=== PATIENT | female | born 1945 | race African-American/Black ===

== ENCOUNTER 2021-08-18 16:46 | Inpatient (IN) | payer MEDICARE, BC ==
[~2021-08-18] VITALS: Ht 152.4 cm; Wt 93.4 kg
[~2021-08-18 16:46] MED LIST: ASCO250T11 PO; ATOR20TA58 PO; Amlodipine PO; CALC0.25 PO; CALC0.5C8 PO; CALC667T4 PO; CARV12.511 PO; CARV25TA PO; CHOL10003 PO; CHOL200044 PO; Carvedilol PO; Cetirizine PO; FERR325T14 PO; FEXO-213 PO; FLUT1DIS IH; FURO-68 PO; GLUC1CAP18 PO; GLUCOSAMINE HCL PO; ISOS1TAB2 PO; LACT1CAP2 PO; LOSA100T14 PO; MAGN400T22 PO; MIDO5TAB4 PO; MINE120C TP; TRAM50TA PO; VIT1TABL32 PO; WARF5TAB2 PO; Warfarin Per Pharmacy MC
[2021-08-18] MEDS ORDERED: MIDO10TA PO (17:58)
[2021-08-18 18:28] VITALS: BP 122/47
--- NOTE | 2021-08-18 19:30 | PDOC1 ---
History and Physical Date of Admission Date of Admission DATE: 08/18/21 TIME: 19:26 Source Source: Caregiver, Chart review History of Present Illness History of Present Illness I was called to accept transfer from [facility]. She was brought by EMS for weakness, she missed HD because she could nto get out of her chair. Prior admit here for similar a year ago, but thinks she didnt get enough therapy then, just sitting on the side of thebed, EMS tried to get her up today and she fell, no injury. She reportedly sleeps in her recliner due to CHF symptoms, has gotten weaker over time, has PVD, prior leg weakness, is very pleasant and is motivated to try to get stronger with PT and OT in the AM SHe lives with her son, is retired after 34 years working at the [employer]. Past Medical History Cardiovascular: AFIB, CHF, HTN Pulmonary: Other CENTRAL NERVOUS SYSTEM: CVA GI: No pertinent hx, GERD Heme/Onc: Anemia NOS Hepatobiliary: No pertinent hx Psych: No pertinent hx Rheumatologic: No pertinent hx Infectious disease: No pertinent hx Renal/: Chronic renal insuff Endocrine: No pertinent hx Past Surgical History Past Surgical History: Pacemaker, Appendectomy, Hysterectomy, Other Family History Family History: Coronary Artery Disease Social History Smoke: No ALCOHOL: none Drugs: None Current Medications Current Medications Active Scripts Active Atorvastatin Calcium 20 Mg Tablet 20 Mg PO QHS 30 Days [Warfarin Per Pharmacy] 1 EACH Each 1 Each MC PRN DAILY PRN 30 Days Reported Midodrine Hcl 10 Mg Tablet 10 Mg PO DAILY Calcium Acetate 667 Mg Tablet 667 Mg PO TIDWMEALS [Glucosamine HCL] 1 Tab PO BID Mag-Oxide (Magnesium Oxide) 400 Mg Tablet 1 Tab PO DAILY Lasix (Furosemide) 40 Mg Tablet 1 Tab PO DAILY Allergies Allergies: Coded Allergies: No Known Medication Allergies (Verified Allergy, Unknown, 04/21/16) ROS General: No: Chills, Night Sweats, Fatigue, Malaise, Appetite, Other PSYCHOLOGICAL ROS: No: Anxiety, Behavioral Disorder, Concentration difficultie, Decreased libido, Depression, Disorientation, Hallucinations, Hostility, Irritablity, Memory difficulties, Mood Swings, Obsessive thoughts, Physical abuse, Sexual abuse, Sleep disturbances, Suicidal ideation, Other Eyes: No Blurry vision, No Decreased vision, No Double vision, No Dry eyes, No Excessive tearing, No Eye Pain, No Itchy Eyes, No Loss of vision, No Photophobia, No Scotomata, No Uses contacts, No Uses glasses, No Other Hematological and Lymphatic: No: Bleeding Problems, Blood Clots, Blood Transfusions, Brusing, Night Sweats, Pallor, Swollen Lymph Nodes, Other Respiratory: No: Cough, Hemoptysis, Orthopnea, Pleuritic Pain, Shortness of breath, SOB with excertion, Sputum Changes, Stridor, Tachypnea, Wheezing, Other Cardiovascular: yes Orthopnea, yes Edema; No Chest Pain, No Palpitations, No Paroxysmal Noc. Dyspnea, No Lt Headedness, No Other Gastrointestinal: No Nausea, No Vomiting, No Abdominal Pain, No Diarrhea, No Constipation, No Melena, No Hematochezia, No Other Genitourinary: No Dysuria, No Frequency, No Incontinence, No Hematuria, No Retention, No Discharge, No Urgency, No Pain, No Flank Pain, No Other, No , No , No , No , No , No , No Musculoskeletal: Yes Gait Disturbance, Yes Joint Pain, Yes Joint Stiffness, Yes Muscular Weakness Neurological: No Behavorial Changes, No Bowel/Bladder ControlChng, No Confusion, No Headaches, No Impaired Coord/balance, No Memory Loss, No Numbness/Tingling, No Seizures, No Speech Problems, No Tremors, No Visual Changes, No Weakness, No Other Skin: Yes Dry Skin; No Eczema, No Hair Changes, No Lumps, No Mole Changes, No Mottling, No Nail Changes, No Pruritus, No Rash, No Skin Lesion Changes, No Other, No Acne Physical Exam General: Alert, Oriented X3, Cooperative, No acute distress HEENT: Atraumatic, PERRLA, EOMI, Mucous membr. moist/pink Lungs: Normal air movement Heart: no murmurs, irregularly irregular Extremities: No clubbing, No cyanosis, Normal pulses, Other (1+ Le edema, ) Skin: No rashes Neuro: Normal gait, Normal tone, Cranial nerves 3-12 NL Psych/Mental Status: Mood NL Vitals Vitals Vital Signs Date Time Temp Pulse Resp B/P (MAP) Pulse Ox O2 Delivery O2 Flow Rate FiO2 08/18/21 18:28 Room Air 08/18/21 18:28 98.5 61 18 122/47 (72) 96 98.5 Labs Labs INR 3.8 Cr 7.9, BUN 66, Hgb 10.5 VTE Prophylaxis Ordered VTE Prophylaxis Devices: Yes VTE Pharmacological Prophylaxi: Yes Assessment/Plan Assessment/Plan Weakness - acute on chronic, priro admit about a year ago for similar - will try PT and OT, check labs ESRD on HD consult renal anemia, of CKD chronic combined CHF The Ejection Fraction is 40-45%. Global hypokinesis. mild tricuspid regurgitation. PA pressure approximately 58 mm PVD - Atrial fibrillation Macrocytic anemia HTN History CVA History of hypotension obesity BMI 39 Lower extremity weakness, Justifications for Admission Other Justification JUANA REA MD Aug 18, 2021 19:30
[2021-08-18 19:54] VITALS: BP 125/86
[2021-08-18] MEDS: ATORVASTATIN CALCIUM 20 MG TABLET PO SCH (21:15)
[2021-08-18 23:16] VITALS: BP 110/48
[2021-08-18 23:31] VITALS: BP 116/56
[2021-08-18 23:32] VITALS: BP 104/57
[2021-08-19 03:32] VITALS: BP 129/53
[2021-08-19 07:00] VITALS: BP 121/57
[2021-08-19] MEDS: MIDODRINE 5 MG TABLET PO SCH (07:00)
[2021-08-19] MEDS: CALCIUM ACETATE 667 MG CAPSULE PO SCH ×3 (08:06→16:56)
[2021-08-19] MEDS: FUROSEMIDE 40 MG TABLET. PO SCH (08:06)
[2021-08-19] MEDS: MAGNESIUM OXIDE 400 MG TABLET PO SCH (08:06)
[2021-08-19 08:20] LABS: BASO % 0 % (0-3); EOS # 0.2 x10^3/uL (0.0-0.7); EOS % 4 % (0-3); HEMATOCRIT 29.1 % (36.0-47.0); HEMOGLOBIN 9.2 g/dL (12.0-15.5); LYMPH # 0.6 x10^3/uL (1.0-4.8); LYMPH % 10 % (24-48); MEAN CORPUSCULAR HEMOGLOBIN 31 pg (25-35); MEAN CORPUSCULAR HGB CONC 32 g/dL (31-37); MEAN CORPUSCULAR VOLUME 98 fL (79-100); MONO # 0.7 x10^3/uL (0.0-1.1); MONO % 11 % (0-9); NEUT # 4.8 x10^3/uL (1.8-7.7); NEUT % 75 % (31-73); PLATELET COUNT 163 x10^3/uL (140-400); RED BLOOD COUNT 2.98 x10^6/uL (3.50-5.40); RED CELL DISTRIBUTION WIDTH 16.7 % (11.5-14.5); WHITE BLOOD COUNT 6.4 x10^3/uL (4.0-11.0)
[2021-08-19 08:30] LABS: PROTHROMBIN TIME PATIENT 40.6 SEC (11.7-14.0)
[2021-08-19 08:38] LABS: ALBUMIN 2.8 g/dL (3.4-5.0); ALBUMIN/GLOBULIN RATIO 0.6 (1.0-1.7); CALCIUM 8.6 mg/dL (8.5-10.1); CREATININE 9.3 mg/dL (0.6-1.0); POTASSIUM 4.1 mmol/L (3.5-5.1); TOTAL BILIRUBIN 0.5 mg/dL (0.2-1.0); TOTAL PROTEIN 7.2 g/dL (6.4-8.2)
[2021-08-19 11:00] VITALS: BP 121/52
--- NOTE | 2021-08-19 11:50 | NUR ---
Pharmacy Warfarin Dosing Note S:Pharmacy consulted to assist with anticoagulation therapy started with target INR: 2 -3 O:OSORIO PATEL is a 75 year old F with Atrial Fibrillation LABS: Last INR: 4.3 Last HGB: 9.2 Last HCT: 29.1 Last PLT: 163 Last dose of Hold given on at Previous Regimen: 5mg po daily Vitamin K given: N Drug Interaction Changes: Ongoing Drug Interactions: A:INR of 4.3 is above desired range. Target range for this patient is: 2 -3 P: Warfarin dose: Hold Today at 1600 Bridge Therapy: None Next INR due tomorrow. Pharmacy anticoagulation service will continue to follow. Robert Goddard [facility], 08/19/21 [id number]
--- NOTE | 2021-08-19 11:55 | PDOC ---
[employer] PROGRESS NOTE Date of Service DOS: DATE: 08/19/21 TIME: 11:48 Chief Complaint Chief Complaint Weakness - acute on chronic, priro admit about a year ago for similar - will try PT and OT, check labs ESRD on HD consult renal anemia, of CKD chronic combined CHF The Ejection Fraction is 40-45%. Global hypokinesis. mild tricuspid regurgitation. PA pressure approximately 58 mm PVD - Atrial fibrillation Macrocytic anemia HTN History CVA History of hypotension obesity BMI 39 Lower extremity weakness, History of Present Illness History of Present Illness 08/19 Patient evaluated examined at bedside. In chair. Had just gotten done working with therapy. Says she was able to get up out of bed and into the chair. Described to me she was at [facility] from last December to this July. And eventually discharged from there on July 25. Since returning home she initially was doing well however she got more sporadic on doing her therapies at home since she was feeling better. Over the few days developed worsening weakness and decreased p.o. intake. Eventually requiring her to come back to the hospital. When I evaluated her this morning she was resting in bed saying still feeling fatigued. Otherwise we will continue current plan. She is adamant about not returning to [facility] discussed with bedside RN. Social work consult Vitals/I&O Vitals/I&O: Vital Signs Date Time Temp Pulse Resp B/P (MAP) Pulse Ox O2 Delivery O2 Flow Rate FiO2 08/19/21 11:00 97.4 65 19 121/52 (75) 99 Room Air 97.4 I & O 08/18/21 08/18/21 08/19/21 15:00 23:00 07:00 Intake Total 330 ml Balance 330 ml Physical Exam General: Alert, Oriented X3, Cooperative, No acute distress Heart: Regular rate Lungs: Clear Abdomen: Normal bowel sounds, Soft Extremities: No clubbing, No cyanosis, Normal pulses, Other (1+ Le edema, ) Skin: No rashes Labs Labs: Laboratory Tests Test 08/19/21 05:00 08/19/21 06:45 08/19/21 06:50 Hepatitis B Surface Antigen Nonreactive (Nonreactive) White Blood Count 6.4 x10^3/uL (4.0-11.0) Red Blood Count 2.98 x10^6/uL (3.50-5.40) Hemoglobin 9.2 g/dL (12.0-15.5) Hematocrit 29.1 % (36.0-47.0) Mean Corpuscular Volume 98 fL (79-100) Mean Corpuscular Hemoglobin 31 pg (25-35) Mean Corpuscular Hemoglobin Concent 32 g/dL (31-37) Red Cell Distribution Width 16.7 % (11.5-14.5) Platelet Count 163 x10^3/uL (140-400) Neutrophils (%) (Auto) 75 % (31-73) Lymphocytes (%) (Auto) 10 % (24-48) Monocytes (%) (Auto) 11 % (0-9) Eosinophils (%) (Auto) 4 % (0-3) Basophils (%) (Auto) 0 % (0-3) Neutrophils # (Auto) 4.8 x10^3/uL (1.8-7.7) Lymphocytes # (Auto) 0.6 x10^3/uL (1.0-4.8) Monocytes # (Auto) 0.7 x10^3/uL (0.0-1.1) Eosinophils # (Auto) 0.2 x10^3/uL (0.0-0.7) Basophils # (Auto) 0.0 x10^3/uL (0.0-0.2) Sodium Level 143 mmol/L (136-145) Potassium Level 4.1 mmol/L (3.5-5.1) Chloride Level 105 mmol/L (98-107) Carbon Dioxide Level 27 mmol/L (21-32) Anion Gap 11 (6-14) Blood Urea Nitrogen 80 mg/dL (7-20) Creatinine 9.3 mg/dL (0.6-1.0) Estimated GFR (Cockcroft-Gault) 5.0 BUN/Creatinine Ratio 9 (6-20) Glucose Level 80 mg/dL (70-99) Calcium Level 8.6 mg/dL (8.5-10.1) Total Bilirubin 0.5 mg/dL (0.2-1.0) Aspartate Amino Transf (AST/SGOT) 15 U/L (15-37) Alanine Aminotransferase (ALT/SGPT) 7 U/L (14-59) Alkaline Phosphatase 121 U/L (46-116) Total Protein 7.2 g/dL (6.4-8.2) Albumin 2.8 g/dL (3.4-5.0) Albumin/Globulin Ratio 0.6 (1.0-1.7) Prothrombin Time 40.6 SEC (11.7-14.0) Prothromb Time International Ratio 4.3 (0.8-1.1) Comment Review of Relevant I have reviewed the following items maya (where applicable) has been applied. Medications: Current Medications Medications (Trade) Dose Ordered Sig/Radha Route PRN Reason Start Time Stop Time Status Last Admin Dose Admin Atorvastatin Calcium (Lipitor) 20 mg QHS PO 08/18/21 21:00 08/18/21 21:15 Furosemide (Lasix) 40 mg DAILY PO 08/19/21 09:00 08/19/21 08:06 Magnesium Oxide (Magnesium Oxide) 400 mg DAILY PO 08/19/21 09:00 08/19/21 08:06 Calcium Acetate (Phoslo) 667 mg TIDWMEALS PO 08/19/21 08:00 08/19/21 08:06 Justifications for Admission Other Justification CASI CHOI MD Aug 19, 2021 11:55
--- NOTE | 2021-08-19 13:28 | PDOC2 ---
CONSULT Date of Consult Date of Consult DATE: 08/19/21 TIME: 13:28 Reason for Consult Reason for Consult: ESRD Identification/Chief Complaint Chief Complaint No complaints currently Source Source: Chart review, Patient History of Present Illness Reason for Visit: Patient is a 75 yo AAF transferred from [facility] ER by EMS for c/o weakness, she missed HD yesterday as she could not get out of her chair. She was admitted here for similar complaints a year ago .EMS tried to get her up but she fell, no injury. She sleeps in her recliner due to CHF symptoms, has gotten weaker over time, has PVD . denies any N/.V.D. No CP or SOB. No abdominal pain . Denies F/C , No LE edema Has been on dialysis for 7-8 years , reports cause of Kidney failure was UTI. She is compliant with Dialysis and Diet/Fluid restrictions SHe lives with her son, is retired after 34 years working at the [employer]. Past Medical History Cardiovascular: AFIB, CHF, HTN Pulmonary: Other CENTRAL NERVOUS SYSTEM: CVA GI: No pertinent hx, GERD Heme/Onc: Anemia NOS Hepatobiliary: No pertinent hx Psych: No pertinent hx Rheumatologic: No pertinent hx Infectious disease: No pertinent hx Renal/: Chronic renal insuff Endocrine: No pertinent hx Past Surgical History Past Surgical History: Pacemaker, Appendectomy, Hysterectomy, Other Family History Family History: Coronary Artery Disease Social History No ALCOHOL: none Drugs: None Lives: with Family Current Medications Current Medications Current Medications Atorvastatin Calcium (Lipitor) 20 mg QHS PO Last administered on 08/18/21at 21:15; Start 08/18/21 at 21:00 Furosemide (Lasix) 40 mg DAILY PO Last administered on 08/19/21at 08:06; Start 08/19/21 at 09:00 Magnesium Oxide (Magnesium Oxide) 400 mg DAILY PO Last administered on 08/19/21at 08:06; Start 08/19/21 at 09:00 Calcium Acetate (Phoslo) 667 mg TIDWMEALS PO Last administered on 08/19/21at 11:55; Start 08/19/21 at 08:00 Midodrine (Proamatine) 10 mg DAILY07 PO ; Start 08/19/21 at 07:00 Warfarin Sodium (Coumadin Per Pharmacy) 1 each PRN DAILY PRN MC SEE COMMENTS Last administered on 08/19/21at 11:49; Start 08/18/21 at 20:00 Warfarin Sodium (Coumadin - No Dose Today) 1 each 1X WARF ONCE MC ; Start 08/18/21 at 16:00; Stop 08/19/21 at 11:43; Status DC Warfarin Sodium (Coumadin - No Dose Today) 1 each 1X WARF ONCE MC Last administered on 08/19/21at 11:55; Start 08/19/21 at 16:00; Stop 08/19/21 at 16:01 Active Scripts Active Atorvastatin Calcium 20 Mg Tablet 20 Mg PO QHS 30 Days [Warfarin Per Pharmacy] 1 EACH Each 1 Each MC PRN DAILY PRN 30 Days Reported Midodrine Hcl 10 Mg Tablet 10 Mg PO DAILY Calcium Acetate 667 Mg Tablet 667 Mg PO TIDWMEALS [Glucosamine HCL] 1 Tab PO BID Mag-Oxide (Magnesium Oxide) 400 Mg Tablet 1 Tab PO DAILY Lasix (Furosemide) 40 Mg Tablet 1 Tab PO DAILY Allergies Allergies: Coded Allergies: No Known Medication Allergies (Verified Allergy, Unknown, 04/21/16) ROS Review of System As per HPI, rest of the ROS is negative Physical Exam Physical Exam General: Alert, Oriented X3, Cooperative, No acute distress, sitting up in chair HEENT: Atraumatic, PERRLA, EOMI, Mucous membr. moist/pink Neck Supple Lungs: CTA , Non labored Heart: no murmurs, irregularly irregular Extremities: No clubbing, No cyanosis, trace edema Skin: No rashes Neuro: Cranial nerves 3-12 NL, moving all extremities Psych/Mental Status: Mood NL, cooperative No Hayes, No CVA or SP tenderness Vital Signs Vital Signs Date Time Temp Pulse Resp B/P (MAP) Pulse Ox O2 Delivery O2 Flow Rate FiO2 08/19/21 11:00 97.4 65 19 121/52 (75) 99 Room Air 97.4 Assessment & Plan ESRD- On HD MWF, missed yesterday .E-Lytes stable. Clinically Resp status stable. No emergent indication for dialysis today. Schedule for tomorrow Weakness - Lower extremity acute on chronic, priror admit about a year ago for similar Anemia- Monitor, Start TRACEY Chronic combined CHF - EF 40-45%. Global hypokinesis. mild tricuspid regurgitation. PA pressure approximately 58 mm HTN- BP stable PVD Atrial fibrillation History CVA History of hypotension Labs Labs Laboratory Tests Test 08/19/21 05:00 08/19/21 06:45 08/19/21 06:50 Hepatitis B Surface Antigen Nonreactive (Nonreactive) White Blood Count 6.4 x10^3/uL (4.0-11.0) Red Blood Count 2.98 x10^6/uL (3.50-5.40) Hemoglobin 9.2 g/dL (12.0-15.5) Hematocrit 29.1 % (36.0-47.0) Mean Corpuscular Volume 98 fL (79-100) Mean Corpuscular Hemoglobin 31 pg (25-35) Mean Corpuscular Hemoglobin Concent 32 g/dL (31-37) Red Cell Distribution Width 16.7 % (11.5-14.5) Platelet Count 163 x10^3/uL (140-400) Neutrophils (%) (Auto) 75 % (31-73) Lymphocytes (%) (Auto) 10 % (24-48) Monocytes (%) (Auto) 11 % (0-9) Eosinophils (%) (Auto) 4 % (0-3) Basophils (%) (Auto) 0 % (0-3) Neutrophils # (Auto) 4.8 x10^3/uL (1.8-7.7) Lymphocytes # (Auto) 0.6 x10^3/uL (1.0-4.8) Monocytes # (Auto) 0.7 x10^3/uL (0.0-1.1) Eosinophils # (Auto) 0.2 x10^3/uL (0.0-0.7) Basophils # (Auto) 0.0 x10^3/uL (0.0-0.2) Sodium Level 143 mmol/L (136-145) Potassium Level 4.1 mmol/L (3.5-5.1) Chloride Level 105 mmol/L (98-107) Carbon Dioxide Level 27 mmol/L (21-32) Anion Gap 11 (6-14) Blood Urea Nitrogen 80 mg/dL (7-20) Creatinine 9.3 mg/dL (0.6-1.0) Estimated GFR (Cockcroft-Gault) 5.0 BUN/Creatinine Ratio 9 (6-20) Glucose Level 80 mg/dL (70-99) Calcium Level 8.6 mg/dL (8.5-10.1) Total Bilirubin 0.5 mg/dL (0.2-1.0) Aspartate Amino Transf (AST/SGOT) 15 U/L (15-37) Alanine Aminotransferase (ALT/SGPT) 7 U/L (14-59) Alkaline Phosphatase 121 U/L (46-116) Total Protein 7.2 g/dL (6.4-8.2) Albumin 2.8 g/dL (3.4-5.0) Albumin/Globulin Ratio 0.6 (1.0-1.7) Prothrombin Time 40.6 SEC (11.7-14.0) Prothromb Time International Ratio 4.3 (0.8-1.1) Laboratory Tests Test 08/19/21 05:00 08/19/21 06:45 08/19/21 06:50 Hepatitis B Surface Antigen Nonreactive (Nonreactive) White Blood Count 6.4 x10^3/uL (4.0-11.0) Red Blood Count 2.98 x10^6/uL (3.50-5.40) Hemoglobin 9.2 g/dL (12.0-15.5) Hematocrit 29.1 % (36.0-47.0) Mean Corpuscular Volume 98 fL (79-100) Mean Corpuscular Hemoglobin 31 pg (25-35) Mean Corpuscular Hemoglobin Concent 32 g/dL (31-37) Red Cell Distribution Width 16.7 % (11.5-14.5) Platelet Count 163 x10^3/uL (140-400) Neutrophils (%) (Auto) 75 % (31-73) Lymphocytes (%) (Auto) 10 % (24-48) Monocytes (%) (Auto) 11 % (0-9) Eosinophils (%) (Auto) 4 % (0-3) Basophils (%) (Auto) 0 % (0-3) Neutrophils # (Auto) 4.8 x10^3/uL (1.8-7.7) Lymphocytes # (Auto) 0.6 x10^3/uL (1.0-4.8) Monocytes # (Auto) 0.7 x10^3/uL (0.0-1.1) Eosinophils # (Auto) 0.2 x10^3/uL (0.0-0.7) Basophils # (Auto) 0.0 x10^3/uL (0.0-0.2) Sodium Level 143 mmol/L (136-145) Potassium Level 4.1 mmol/L (3.5-5.1) Chloride Level 105 mmol/L (98-107) Carbon Dioxide Level 27 mmol/L (21-32) Anion Gap 11 (6-14) Blood Urea Nitrogen 80 mg/dL (7-20) Creatinine 9.3 mg/dL (0.6-1.0) Estimated GFR (Cockcroft-Gault) 5.0 BUN/Creatinine Ratio 9 (6-20) Glucose Level 80 mg/dL (70-99) Calcium Level 8.6 mg/dL (8.5-10.1) Total Bilirubin 0.5 mg/dL (0.2-1.0) Aspartate Amino Transf (AST/SGOT) 15 U/L (15-37) Alanine Aminotransferase (ALT/SGPT) 7 U/L (14-59) Alkaline Phosphatase 121 U/L (46-116) Total Protein 7.2 g/dL (6.4-8.2) Albumin 2.8 g/dL (3.4-5.0) Albumin/Globulin Ratio 0.6 (1.0-1.7) Prothrombin Time 40.6 SEC (11.7-14.0) Prothromb Time International Ratio 4.3 (0.8-1.1) Review All relevant outside records, renal labs, imaging studies, telemetry/EKG's were reviewed. JARAD SHAH MD Aug 19, 2021 13:28
[2021-08-19 15:00] VITALS: BP 127/52
[2021-08-19 19:00] VITALS: BP 117/44
[2021-08-19] MEDS: ATORVASTATIN CALCIUM 20 MG TABLET PO SCH (21:34)
[2021-08-19 23:10] VITALS: BP 119/42
[2021-08-20 03:30] VITALS: BP 118/47
[2021-08-20] MEDS: MIDODRINE 5 MG TABLET PO SCH (06:06)
[2021-08-20 07:00] VITALS: BP 126/53
[2021-08-20] MEDS: CALCIUM ACETATE 667 MG CAPSULE PO SCH ×3 (08:00→16:28)
[2021-08-20 08:11] LABS: PROTHROMBIN TIME PATIENT 41.4 SEC (11.7-14.0)
[2021-08-20 08:27] LABS: CALCIUM 8.5 mg/dL (8.5-10.1); GFR 4.1
[2021-08-20] MEDS: GLUCOSAMINE PO SCH ×2 (08:56→21:00)
[2021-08-20] MEDS: [UNRECOGNIZED DRUG - OTHER] PO SCH ×2 (08:56→21:00)
[2021-08-20] MEDS: FUROSEMIDE 40 MG TABLET. PO SCH (09:00)
[2021-08-20] MEDS ORDERED: DIALYSIS PATIENT. MC PRN (09:00)
[2021-08-20] MEDS ORDERED: IV NORMAL SALINE 1000ML BAG 1,000 ML IV PRN ×2 (09:00)
[2021-08-20] MEDS: MAGNESIUM OXIDE 400 MG TABLET PO SCH (09:00)
--- NOTE | 2021-08-20 09:45 | PDOC ---
DATE OF SERVICE DATE: 08/20/21 TIME: 09:42 SUBJECTIVE ROS Seen on dialysis, No complaints OBJECTIVE Vital Signs Vital Signs Date Time Temp Pulse Resp B/P (MAP) Pulse Ox O2 Delivery O2 Flow Rate FiO2 08/20/21 08:30 Room Air 08/20/21 07:00 98.1 67 18 126/53 (77) 97 98.1 I & 0 Intake and Output 08/20/21 07:00 Intake Total 290 ml Balance 290 ml Intake Oral 290 ml # Bowel Movements 1 PHYSICAL EXAM Physical Exam General: Alert, Oriented X3, Cooperative, No acute distress, sitting up in chair HEENT: Atraumatic, PERRLA, EOMI, Mucous membr. moist/pink Neck Supple Lungs: CTA , Non labored Heart: no murmurs, irregularly irregular Extremities: No clubbing, No cyanosis, trace edema Skin: No rashes Neuro: Cranial nerves 3-12 NL, moving all extremities Psych/Mental Status: Mood NL, cooperative No Hayes, No CVA or SP tenderness Vital Signs Vital Signs Date Time Temp Pulse Resp B/P (MAP) Pulse Ox O2 Delivery O2 Flow Rate FiO2 08/19/21 11:00 97.4 65 19 121/52 (75) 99 Room Air 97.4 DIAGNOSIS/ASSESSMENT Assessment & Plan ESRD- On HD MWF, .E-Lytes stable. Seen during treatment, Tolerating well. Continue as ordered. Edd VILLARREAL Weakness - Lower extremity acute on chronic, priror admit about a year ago for similar Anemia- Monitor, Start TRACEY Chronic combined CHF - EF 40-45%. Global hypokinesis. mild tricuspid regurgitation. PA pressure approximately 58 mm HTN- BP stable PVD Atrial fibrillation History CVA History of hypotension COMMENT/RELEVANT DATA Meds Current Medications Medications (Trade) Dose Ordered Sig/Radha Start Time Stop Time Status Last Admin Dose Admin Atorvastatin Calcium (Lipitor) 20 mg QHS 08/18/21 21:00 08/19/21 21:34 20 MG Calcium Acetate (Phoslo) 667 mg TIDWMEALS 08/19/21 08:00 08/19/21 16:56 667 MG Furosemide (Lasix) 40 mg DAILY 08/19/21 09:00 08/20/21 09:00 40 MG Info (PHARMACY MONITORING -- do not chart) 1 each PRN DAILY PRN 08/20/21 09:00 Magnesium Oxide (Magnesium Oxide) 400 mg DAILY 08/19/21 09:00 08/20/21 09:00 400 MG Midodrine (Proamatine) 10 mg DAILY07 08/19/21 07:00 Non-Formulary Medication ([Glucosamine HCL] ) 1 tab BID 08/20/21 09:00 Sodium Chloride 1,000 ml @ 400 mls/hr Q2H30M PRN 08/20/21 09:00 08/20/21 20:59 Warfarin Sodium (Coumadin - No Dose Today) 1 each 1X WARF ONCE 08/19/21 16:00 08/19/21 16:01 DC 08/19/21 11:55 1 EACH Warfarin Sodium (Coumadin Per Pharmacy) 1 each PRN DAILY PRN 08/18/21 20:00 08/19/21 11:49 1 EACH Lab Laboratory Tests Test 08/20/21 07:02 Prothrombin Time 41.4 SEC (11.7-14.0) Prothromb Time International Ratio 4.5 (0.8-1.1) Sodium Level 142 mmol/L (136-145) Potassium Level 5.0 mmol/L (3.5-5.1) Chloride Level 102 mmol/L (98-107) Carbon Dioxide Level 26 mmol/L (21-32) Anion Gap 14 (6-14) Blood Urea Nitrogen 107 mg/dL (7-20) Creatinine 11.0 mg/dL (0.6-1.0) Estimated GFR (Cockcroft-Gault) 4.1 Glucose Level 88 mg/dL (70-99) Calcium Level 8.5 mg/dL (8.5-10.1) Results All relevant outside records, renal labs, imaging studies, telemetry/EKG's were reviewed. Justicifation of Admission Dx: Justifications for Admission: Justification of Admission Dx: N/A JARAD SHAH MD Aug 20, 2021 09:45
--- NOTE | 2021-08-20 12:19 | NUR ---
SS following for discharge planning. SS reviewed pt chart and discussed with pt RN. Pt is from home with son and is currently on room air. Pt was recently at [facility] in [place] for prison unit but ran out of skilled days and per facility owes [facility] approximately $30,000. SS was notified that pt was also recently denied for Medicaid as well and pt's skilled days have not reset at this time. Pt has outpatient hemodialysis at [facility], ; fax [phone], Wednesday, Wednesday, and Wednesday. Pt had services with [facility], ; fax [phone]. Nephrology following. SS will continue to follow for discharge planning.
[2021-08-20 15:00] VITALS: BP 129/53
[2021-08-20 19:00] VITALS: BP 117/47
[2021-08-20] MEDS: ATORVASTATIN CALCIUM 20 MG TABLET PO SCH (21:01)
--- NOTE | 2021-08-20 22:13 | PDOC ---
[facility] PROGRESS NOTE Date of Service DOS: DATE: 08/20/21 TIME: 22:11 Chief Complaint Chief Complaint Weakness - acute on chronic, priro admit about a year ago for similar - will try PT and OT, check labs ESRD on HD consult renal anemia, of CKD chronic combined CHF The Ejection Fraction is 40-45%. Global hypokinesis. mild tricuspid regurgitation. PA pressure approximately 58 mm PVD - Atrial fibrillation Macrocytic anemia HTN History CVA History of hypotension obesity BMI 39 Lower extremity weakness, History of Present Illness History of Present Illness 6 Evaluated examined at bedside. Undergoing dialysis. No complaints. Given social situation suspect she is going to need to return home with home health. Will again discuss with social work. Possible discharge tomorrow. 08/19 Patient evaluated examined at bedside. In chair. Had just gotten done working with therapy. Says she was able to get up out of bed and into the chair. Described to me she was at medical [place] from last December to this July. And eventually discharged from there on July 25. Since returning home she initially was doing well however she got more sporadic on doing her therapies at home since she was feeling better. Over the few days developed worsening weakness and decreased p.o. intake. Eventually requiring her to come back to the hospital. When I evaluated her this morning she was resting in bed saying still feeling fatigued. Otherwise we will continue current plan. She is adamant about not returning to [facility] discussed with bedside RN. Social work consult Vitals/I&O Vitals/I&O: Vital Signs Date Time Temp Pulse Resp B/P (MAP) Pulse Ox O2 Delivery O2 Flow Rate FiO2 08/20/21 19:00 97.4 65 19 117/47 (70) 93 Room Air 97.4 I & O 08/19/21 08/19/21 08/20/21 15:00 23:00 07:00 Intake Total 120 ml 120 ml 50 ml Balance 120 ml 120 ml 50 ml Physical Exam General: Alert, Oriented X3, Cooperative, No acute distress Heart: Regular rate Lungs: Clear Abdomen: Normal bowel sounds, Soft Extremities: No clubbing, No cyanosis, Normal pulses, Other (1+ Le edema, ) Skin: No rashes Labs Labs: Laboratory Tests Test 08/20/21 07:02 Prothrombin Time 41.4 SEC (11.7-14.0) Prothromb Time International Ratio 4.5 (0.8-1.1) Sodium Level 142 mmol/L (136-145) Potassium Level 5.0 mmol/L (3.5-5.1) Chloride Level 102 mmol/L (98-107) Carbon Dioxide Level 26 mmol/L (21-32) Anion Gap 14 (6-14) Blood Urea Nitrogen 107 mg/dL (7-20) Creatinine 11.0 mg/dL (0.6-1.0) Estimated GFR (Cockcroft-Gault) 4.1 Glucose Level 88 mg/dL (70-99) Calcium Level 8.5 mg/dL (8.5-10.1) Comment Review of Relevant I have reviewed the following items maya (where applicable) has been applied. Medications: Current Medications Medications (Trade) Dose Ordered Sig/Radha Route PRN Reason Start Time Stop Time Status Last Admin Dose Admin Warfarin Sodium (Coumadin - No Dose Today) 1 each 1X WARF ONCE MC 08/20/21 16:00 08/20/21 16:01 DC 08/20/21 15:11 Justifications for Admission Other Justification CASI CHOI MD Aug 20, 2021 22:13
[2021-08-20 23:21] VITALS: BP 119/46
[2021-08-21] VITALS (7 sets, daily range): BP systolic 97–128; BP diastolic 46–56
[2021-08-21] MEDS: MIDODRINE 5 MG TABLET PO SCH (05:54)
[2021-08-21] MEDS: CALCIUM ACETATE 667 MG CAPSULE PO SCH ×3 (07:28→16:39)
[2021-08-21] MEDS: MAGNESIUM OXIDE 400 MG TABLET PO SCH (09:02)
[2021-08-21] MEDS: [UNRECOGNIZED DRUG - OTHER] PO SCH ×2 (09:03→20:42)
[2021-08-21] MEDS: GLUCOSAMINE PO SCH ×2 (09:03→20:42)
[2021-08-21] MEDS: FUROSEMIDE 40 MG TABLET. PO SCH (09:25)
[2021-08-21 09:28] LABS: PROTHROMBIN TIME PATIENT 25.5 SEC (11.7-14.0)
[2021-08-21 09:57] LABS: CREATININE 6.1 mg/dL (0.6-1.0); GFR 8.1; POTASSIUM 4.2 mmol/L (3.5-5.1)
--- NOTE | 2021-08-21 11:07 | PDOC ---
DATE OF SERVICE DATE: 08/21/21 TIME: 11:06 SUBJECTIVE ROS No new complaints . stable OBJECTIVE Vital Signs Vital Signs Date Time Temp Pulse Resp B/P (MAP) Pulse Ox O2 Delivery O2 Flow Rate FiO2 08/21/21 09:15 65 125/46 (72) 08/21/21 07:33 Room Air 08/21/21 07:00 98.0 20 97 98.0 I & 0 Intake and Output 08/21/21 07:00 Intake Total 710 ml Balance 710 ml Intake Oral 710 ml # Bowel Movements 1 PHYSICAL EXAM Physical Exam General: Alert, Oriented X3, Cooperative, No acute distress, sitting up in chair HEENT: Atraumatic, PERRLA, EOMI, Mucous membr. moist/pink Neck Supple Lungs: CTA , Non labored Heart: no murmurs, irregularly irregular Extremities: No clubbing, No cyanosis, trace edema Skin: No rashes Neuro: Cranial nerves 3-12 NL, moving all extremities Psych/Mental Status: Mood NL, cooperative No Hayes, No CVA or SP tenderness Vital Signs Vital Signs Date Time Temp Pulse Resp B/P (MAP) Pulse Ox O2 Delivery O2 Flow Rate FiO2 08/19/21 11:00 97.4 65 19 121/52 (75) 99 Room Air 97.4 DIAGNOSIS/ASSESSMENT Assessment & Plan DIAGNOSIS/ASSESSMENT Assessment & Plan ESRD- On HD MWF, .E-Lytes stable. No indication for dialysis today Weakness - Lower extremity acute on chronic, priror admit about a year ago for similar . 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 Global hypokinesis. mild tricuspid regurgitation. PA pressure approximately 58 mm HTN- BP stable PVD Atrial fibrillation History CVA History of hypotension COMMENT/RELEVANT DATA Meds Current Medications Medications (Trade) Dose Ordered Sig/Radha Start Time Stop Time Status Last Admin Dose Admin Atorvastatin Calcium (Lipitor) 20 mg QHS 08/18/21 21:00 08/20/21 21:01 20 MG Calcium Acetate (Phoslo) 667 mg TIDWMEALS 08/19/21 08:00 08/21/21 07:28 667 MG Furosemide (Lasix) 40 mg DAILY 08/19/21 09:00 08/21/21 09:25 40 MG Info (PHARMACY MONITORING -- do not chart) 1 each PRN DAILY PRN 08/20/21 09:00 Magnesium Oxide (Magnesium Oxide) 400 mg DAILY 08/19/21 09:00 08/21/21 09:02 400 MG Midodrine (Proamatine) 10 mg DAILY07 08/19/21 07:00 Non-Formulary Medication ([Glucosamine HCL] ) 1 tab BID 08/20/21 09:00 08/21/21 09:03 1 TAB Sodium Chloride 1,000 ml @ 400 mls/hr Q2H30M PRN 08/20/21 09:00 08/20/21 20:59 DC Warfarin Sodium (Coumadin - No Dose Today) 1 each 1X WARF ONCE 08/20/21 16:00 08/20/21 16:01 DC 08/20/21 15:11 1 EACH Warfarin Sodium (Coumadin Per Pharmacy) 1 each PRN DAILY PRN 08/18/21 20:00 08/19/21 11:49 1 EACH Lab Laboratory Tests Test 08/21/21 08:39 Prothrombin Time 25.5 SEC (11.7-14.0) Prothromb Time International Ratio 2.4 (0.8-1.1) Sodium Level 141 mmol/L (136-145) Potassium Level 4.2 mmol/L (3.5-5.1) Chloride Level 100 mmol/L (98-107) Carbon Dioxide Level 29 mmol/L (21-32) Anion Gap 12 (6-14) Blood Urea Nitrogen 59 mg/dL (7-20) Creatinine 6.1 mg/dL (0.6-1.0) Estimated GFR (Cockcroft-Gault) 8.1 Glucose Level 101 mg/dL (70-99) Calcium Level 9.0 mg/dL (8.5-10.1) Results All relevant outside records, renal labs, imaging studies, telemetry/EKG's were reviewed. Justicifation of Admission Dx: Justifications for Admission: Justification of Admission Dx: N/A JARAD SHAH MD Aug 21, 2021 11:07
[2021-08-21] MEDS ORDERED: WARFARIN 3 MG TABLET. PO ONE (16:30)
[2021-08-21] MEDS: ATORVASTATIN CALCIUM 20 MG TABLET PO SCH (20:41)
[2021-08-22 02:41] VITALS: BP 125/50
[2021-08-22] MEDS: MIDODRINE 5 MG TABLET PO SCH (05:46)
[2021-08-22 06:38] LABS: CALCIUM 8.9 mg/dL (8.5-10.1); CREATININE 7.8 mg/dL (0.6-1.0); GFR 6.1
[2021-08-22 07:00] VITALS: BP 133/95
[2021-08-22] MEDS: CALCIUM ACETATE 667 MG CAPSULE PO SCH ×3 (07:44→16:50)
[2021-08-22] MEDS: GLUCOSAMINE HCL PO SCH ×2 (07:44→16:50)
[2021-08-22] MEDS ORDERED: DIALYSIS PATIENT. MC PRN (08:00)
[2021-08-22] MEDS ORDERED: IV NORMAL SALINE 1000ML BAG 1,000 ML IV PRN ×2 (08:00)
[2021-08-22] MEDS: FUROSEMIDE 40 MG TABLET. PO SCH (09:00)
[2021-08-22] MEDS: MAGNESIUM OXIDE 400 MG TABLET PO SCH (09:00)
[2021-08-22 09:23] LABS: PROTHROMBIN TIME PATIENT 23.1 SEC (11.7-14.0)
--- NOTE | 2021-08-22 11:29 | PDOC ---
[facility] [facility] PROGRESS NOTE Date of Service DOS: August 21 late entry Chief Complaint Chief Complaint Weakness - acute on chronic, priterri admit about a year ago for similar - will t ry PT and OT, check labs ESRD on HD consult renal anemia, of CKD chronic combined CHF The Ejection Fraction is 40-45%. Global hypokinesis. mild tricuspid regurgitation. PA pressure approximately 58 mm PVD - Atrial fibrillation Macrocytic anemia HTN History CVA History of hypotension obesity BMI 39 Lower extremity weakness, History of Present Illness History of Present Illness 08/21 Patient evaluated examined at bedside. Doing well no major complaints. Looks like home health is planned. Plan for discharge tomorrow. 08/20 Evaluated examined at bedside. Undergoing dialysis. No complaints. Given social situation suspect she is going to need to return home with home health. Will again discuss with social work. Possible discharge tomorrow. 08/19 Patient evaluated examined at bedside. In chair. Had just gotten done working with therapy. Says she was able to get up out of bed and into the chair. Described to me she was at medical [place] from last December to this July. And eventually discharged from there on July 25. Since returning home she initially was doing well however she got more sporadic on doing her therapies at home since she was feeling better. Over the few days developed worsening weakness and decreased p.o. intake. Eventually requiring her to come back to the hospital. When I evaluated her this morning she was resting in bed saying still feeling fatigued. Otherwise we will continue current plan. She is adamant about not returning to [facility] discussed with bedside RN. Social work consult Vitals/I&O Vitals/I&O: Vital Signs Date Time Temp Pulse Resp B/P (MAP) Pulse Ox O2 Delivery O2 Flow Rate FiO2 08/22/21 07:49 Room Air 08/22/21 07:00 98.0 65 16 133/95 (108) 99 98.0 I & O 08/21/21 08/21/21 08/22/21 15:00 23:00 07:00 Intake Total 480 ml 240 ml Balance 480 ml 240 ml Physical Exam General: Alert, Oriented X3, Cooperative, No acute distress Heart: Regular rate Lungs: Clear Abdomen: Normal bowel sounds, Soft Extremities: No clubbing, No cyanosis, Normal pulses, Other (1+ Le edema, ) Skin: No rashes Labs Labs: Laboratory Tests Test 08/22/21 04:35 08/22/21 08:45 Sodium Level 138 mmol/L (136-145) Potassium Level 5.0 mmol/L (3.5-5.1) Chloride Level 99 mmol/L (98-107) Carbon Dioxide Level 28 mmol/L (21-32) Anion Gap 11 (6-14) Blood Urea Nitrogen 88 mg/dL (7-20) Creatinine 7.8 mg/dL (0.6-1.0) Estimated GFR (Cockcroft-Gault) 6.1 Glucose Level 81 mg/dL (70-99) Calcium Level 8.9 mg/dL (8.5-10.1) Prothrombin Time 23.1 SEC (11.7-14.0) Prothromb Time International Ratio 2.1 (0.8-1.1) Comment Review of Relevant I have reviewed the following items maya (where applicable) has been applied. Medications: Current Medications Medications (Trade) Dose Ordered Sig/Radha Route PRN Reason Start Time Stop Time Status Last Admin Dose Admin Warfarin Sodium (Coumadin) 3 mg 1X WARF ONCE PO 08/21/21 16:30 08/21/21 16:31 DC 08/21/21 16:39 Non-Formulary Medication ([Glucosamine HCL] ) 1 tab BIDWMEALS PO 08/22/21 08:00 08/22/21 07:44 Justifications for Admission Other Justification CASI CHOI MD Aug 22, 2021 11:28
--- NOTE | 2021-08-22 12:18 | PDOC ---
DATE OF SERVICE DATE: 08/22/21 TIME: 12:16 SUBJECTIVE ROS No new complaints . seen on dialysis. feels better OBJECTIVE Vital Signs Vital Signs Date Time Temp Pulse Resp B/P (MAP) Pulse Ox O2 Delivery O2 Flow Rate FiO2 08/22/21 07:49 Room Air 08/22/21 07:00 98.0 65 16 133/95 (108) 99 98.0 I & 0 Intake and Output 08/22/21 07:00 Intake Total 720 ml Balance 720 ml Intake Oral 720 ml # Bowel Movements 4 PHYSICAL EXAM Physical Exam General: Alert, Oriented X3, Cooperative, No acute distress, sitting up in chair HEENT: Atraumatic, PERRLA, EOMI, Mucous membr. moist/pink Neck Supple Lungs: CTA , Non labored Heart: no murmurs, irregularly irregular Extremities: No clubbing, No cyanosis, trace edema Skin: No rashes Neuro: Cranial nerves 3-12 NL, moving all extremities Psych/Mental Status: Mood NL, cooperative No Hayes, No CVA or SP tenderness DIAGNOSIS/ASSESSMENT Assessment & Plan ESRD- On HD MWF, .E-Lytes stable. Seen during treatment, Tolerating well. Continue as ordered. Edd VILLARREAL Weakness - Lower extremity acute on chronic, priror admit about a year ago for similar . 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 Global hypokinesis. mild tricuspid regurgitation. PA pressure approximately 58 mm HTN- BP stable PVD Atrial fibrillation History CVA History of hypotension COMMENT/RELEVANT DATA Meds Current Medications Medications (Trade) Dose Ordered Sig/Radha Start Time Stop Time Status Last Admin Dose Admin Atorvastatin Calcium (Lipitor) 20 mg QHS 08/18/21 21:00 08/21/21 20:41 20 MG Calcium Acetate (Phoslo) 667 mg TIDWMEALS 08/19/21 08:00 08/22/21 07:44 667 MG Furosemide (Lasix) 40 mg DAILY 08/19/21 09:00 08/21/21 09:25 40 MG Info (PHARMACY MONITORING -- do not chart) 1 each PRN DAILY PRN 08/22/21 08:00 Magnesium Oxide (Magnesium Oxide) 400 mg DAILY 08/19/21 09:00 08/21/21 09:02 400 MG Midodrine (Proamatine) 10 mg DAILY07 08/19/21 07:00 Non-Formulary Medication ([Glucosamine HCL] ) 1 tab BIDWMEALS 08/22/21 08:00 08/22/21 07:44 1 TAB Sodium Chloride 1,000 ml @ 400 mls/hr Q2H30M PRN 08/22/21 08:00 08/22/21 19:59 Warfarin Sodium (Coumadin - No Dose Today) 1 each 1X WARF ONCE 08/20/21 16:00 08/20/21 16:01 DC 08/20/21 15:11 1 EACH Warfarin Sodium (Coumadin Per Pharmacy) 1 each PRN DAILY PRN 08/18/21 20:00 08/21/21 16:23 1 EACH Warfarin Sodium (Coumadin) 3 mg 1X WARF ONCE 08/21/21 16:30 08/21/21 16:31 DC 08/21/21 16:39 3 MG Lab Laboratory Tests Test 08/22/21 04:35 08/22/21 08:45 Sodium Level 138 mmol/L (136-145) Potassium Level 5.0 mmol/L (3.5-5.1) Chloride Level 99 mmol/L (98-107) Carbon Dioxide Level 28 mmol/L (21-32) Anion Gap 11 (6-14) Blood Urea Nitrogen 88 mg/dL (7-20) Creatinine 7.8 mg/dL (0.6-1.0) Estimated GFR (Cockcroft-Gault) 6.1 Glucose Level 81 mg/dL (70-99) Calcium Level 8.9 mg/dL (8.5-10.1) Prothrombin Time 23.1 SEC (11.7-14.0) Prothromb Time International Ratio 2.1 (0.8-1.1) Results All relevant outside records, renal labs, imaging studies, telemetry/EKG's were reviewed. Justicifation of Admission Dx: Justifications for Admission: Justification of Admission Dx: N/A JARAD SHAH MD Aug 22, 2021 12:18
--- NOTE | 2021-08-22 12:42 | NUR ---
Pharmacy Warfarin Dosing Note S: Pharmacy consulted to assist with anticoagulation therapy started O: OSORIO PATEL is a 75 year old F with Atrial Fibrillation LABS: Last INR: 2.1 Last HGB: 9.2 Last HCT: 29.1 Last PLT: 163 Last dose of 3 mg given on 08/21/21 at 1639 Vitamin K given: N A:INR of 2.1 is within desired range. Target range for this patient is: 2 -3 P: Warfarin dose: 3 mg Today at 1600 Bridge Therapy: None Next INR due tomorrow Pharmacy anticoagulation service will continue to follow. Monik Amanda Brionna, 08/22/21 [id number]
--- NOTE | 2021-08-22 12:55 | SNU/HH DC ---
DISCHARGE WITH HOME HEALTH DISCHARGE INFORMATION: Discharge Date: Aug 22, 2021 Final Diagnosis: z Condition on Discharge: Stable CODE STATUS: Code Status: Full HOME HEALTH: Face to Face: I certify this patient is under my care and that I, or a nurse practitioner or physician's assistant project engineer working with me, had a face to face encounter that meets the physician face to face encounter requirements with this patient on []. RN For Eval/Treatment: Yes Physical Therapy For: Evalulation/Treatment Occupational Therapy For: Evaluation/Treatment Pt Meets Homebound Status: Poor coordination w/ amb., Unsteady balance w/ amb,, Extreme weakness w/ amb. POST DISCHARGE ORDERS: Activity Instructions for Disc: Activity as tolerated Weight Bearing Status after Di: As tolerated DIET AFTER DISCHARGE: Renal CHECKS AFTER DISCHARGE: Checks after discharge: Check blood press - daily TREATMENT/EQUIPMENT ORDERS: Adaptive Equipment Issued: None Discharge Respiratory Equipmen: Oxygen CERTIFICATION STATEMENT: Certification Statement: Certification Statement: Based on the above finding, I certify that this patient is confined to the home and needs intermittent chcf care, physical therapy and/or speech therapy, or continues to need occupational therapy.~ This patient is under my care, and I have initiated the establishment of the plan of care.~ This patient will be followed by myself or a community physician who will periodically review the plan of care. Home Meds Active Scripts Atorvastatin Calcium (ATORVASTATIN CALCIUM) 20 Mg Tablet, 20 MG PO QHS for . for 30 Days, #30 TAB Prov:CASTLE,NIAL K III DO 12/24/20 [Warfarin Per Pharmacy] 1 EACH EACH No Conflict Check, 1 EACH PRN DAILY PRN for SEE COMMENTS for 30 Days, #30 Prov:CASTLE,NIAL K III DO 12/24/20 Reported Medications Midodrine Hcl (MIDODRINE HCL) 10 Mg Tablet, 10 MG PO DAILY for HYPOTENSION, TAB 08/18/21 Calcium Acetate (CALCIUM ACETATE) 667 Mg Tablet, 667 MG PO TIDWMEALS for DIALYSIS PATIENTS, CAP 04/11/18 Magnesium Oxide (MAG-OXIDE) 400 Mg Tablet, 1 TAB PO DAILY, #90 TAB 3 Refills 04/21/16 Furosemide (LASIX) 40 Mg Tablet, 1 TAB PO DAILY, #90 TAB 1 Refill 04/21/16 Discontinued Reported Medications [Glucosamine HCL] No Conflict Check, 1 TAB PO BID 04/09/17 Mineral Oil/Petrolatum,White (EUCERIN CREME ) 120 Gm Cream..g., 1 KLARISSA TP FOX Y for DRY SKIN ON LEGS, #1 TUBE 04/12/18 Tramadol Hcl (TRAMADOL HCL) 50 Mg Tablet, 50 MG PO Q4HRS PRN for PAIN, TAB 04/11/18 Fluticasone/Salmeterol (ADVAIR 100-50 DISKUS) 1 Each Disk.w.dev, 1 INH IH BID for COPD, INHALER 04/11/18 Fexofenadine Hcl (FEXOFENADINE HCL) 180 Mg Tablet, 180 MG PO DAILY for ALLERGIES, TAB 04/11/18 Cholecalciferol (Vitamin D3) (VITAMIN D3) 1,000 Unit Tablet, 1000 UNIT PO DAILY for SUPPLEMENT, TAB 04/11/18 Warfarin Sodium (COUMADIN) 5 Mg Tablet, 1 TAB PO DAILY, #90 TAB 1 Refill 04/09/17 Lactobacillus Acidophilus (ACIDOPHILUS) 1 Each Capsule, 1 EACH PO BID, CAP 04/09/17 Vit A,C & E/Lutein/Minerals (OCUVITE TABLET) 1 Each Tablet, 1 EACH PO DAILY 04/21/16 CASI CHOI MD Aug 22, 2021 12:55
--- NOTE | 2021-08-22 13:38 | NUR ---
SS following up with discharge planning. SS reviewed pt chart and discussed with pt RN. Pt is currently on room air. Pt has outpatient hemodialysis at [facility], ; fax [phone], Wednesday, Wednesday, and Wednesday. Pt had services with [facility], ; fax [phone]. PT/OT recommended longterm unit. Pt is out of skilled days and was recently denied for Medicaid. Discharge orders received for home with home healthcare. Discharge orders and clinical sent to [facility] and [facility]. SS discussed with pt's son. Pt's son working with SW at [facility] to aid with transportation to and from dialysis. Pt needing transportation to home. Pt will discharge to home via [facility] between 1730 and 1800 today. Pt's RN and pt's son notified.
[2021-08-22] MEDS ORDERED: LIDOCAINE WITH 8.4% SOD BICARB 3 ML DISP.SYRIN. ONE (14:02)
[2021-08-22] MEDS ORDERED: IODIXANOL 320 MG/ML 100 ML VIAL. ONE (14:02)
[2021-08-22] MEDS ORDERED: HEPARIN for IV BOLUS 10,000 UNIT/10 ML VIAL. ONE (14:44)
[2021-08-22 15:00] VITALS: BP 125/31
[2021-08-22] MEDS ORDERED: IODIXANOL 320 MG/ML 100 ML VIAL. IART ONE (15:00)
[2021-08-22] MEDS ORDERED: LIDOCAINE WITH 8.4% SOD BICARB 3 ML DISP.SYRIN. IJ ONE (15:00)
[2021-08-22] MEDS ORDERED: CONTRAST GIVEN. MC PRN (15:15)
[2021-08-22] MEDS ORDERED: WARFARIN 3 MG TABLET. PO ONE (16:00)
--- NOTE | 2021-08-22 18:20 | NUR ---
Pt left unit at 1820 by stretcher via [employer]. Pt's IV removed, VSS. Discharge paperwork discussed and sent with pt at time of discharge. Additional questions addressed.
--- NOTE | 2021-08-24 20:40 | PDOC3 ---
[facility]-Discharge Summary Date of Admission: Date of Admission: Aug 18, 2021 Date of Discharge: Date of Discharge: Aug 23, 2021 Admission Diagnosis: Admitting Diagnosis: esrd, ftt Discharge Diagnosis: Discharge Diagnosis: same Hospital Course: Hospital Course: Weakness - acute on chronic, priro admit about a year ago for similar - will try PT and OT, check labs ESRD on HD consult renal anemia, of CKD chronic combined CHF The Ejection Fraction is 40-45%. Global hypokinesis. mild tricuspid regurgitation. PA pressure approximately 58 mm PVD - Atrial fibrillation Macrocytic anemia HTN History CVA History of hypotension obesity BMI 39 Lower extremity weakness, History of Present Illness History of Present Illness 08/23 seen at bedside. d/c todeay. greater than 30min spent on d/c 08/21 Patient evaluated examined at bedside. Doing well no major complaints. Looks like home health is planned. Plan for discharge tomorrow. 08/20 Evaluated examined at bedside. Undergoing dialysis. No complaints. Given social situation suspect she is going to need to return home with home health. Will again discuss with social work. Possible discharge tomorrow. 08/19 Patient evaluated examined at bedside. In chair. Had just gotten done working with therapy. Says she was able to get up out of bed and into the chair. Described to me she was at medical [place] from last December to this July. And eventually discharged from there on July 25. Since returning home she initially was doing well however she got more sporadic on doing her therapies at home since she was feeling better. Over the few days developed worsening weakness and decreased p.o. intake. Eventually requiring her to come back to the hospital. When I evaluated her this morning she was resting in bed saying still feeling fatigued. Otherwise we will continue current plan. She is adamant about not returning to medical [place] discussed with bedside RN. Social work consult Activity: Activity: Resume previous activity Medications: Home Meds Active Scripts Atorvastatin Calcium (ATORVASTATIN CALCIUM) 20 Mg Tablet, 20 MG PO QHS for . for 30 Days, #30 TAB Prov:CASTLE,NIAL K III DO 12/24/20 [Warfarin Per Pharmacy] 1 EACH EACH No Conflict Check, 1 EACH MC PRN DAILY PRN for SEE COMMENTS for 30 Days, #30 Prov:CASTLE,NIAL K III DO 12/24/20 Reported Medications Midodrine Hcl (MIDODRINE HCL) 10 Mg Tablet, 10 MG PO DAILY for HYPOTENSION, TAB 08/18/21 Calcium Acetate (CALCIUM ACETATE) 667 Mg Tablet, 667 MG PO TIDWMEALS for DIALYSIS PATIENTS, CAP 04/11/18 Magnesium Oxide (MAG-OXIDE) 400 Mg Tablet, 1 TAB PO DAILY, #90 TAB 3 Refills 04/21/16 Furosemide (LASIX) 40 Mg Tablet, 1 TAB PO DAILY, #90 TAB 1 Refill 04/21/16 Discontinued Reported Medications [Glucosamine HCL] No Conflict Check, 1 TAB PO BID 04/09/17 Mineral Oil/Petrolatum,White (EUCERIN CREME ) 120 Gm Cream..g., 1 KLARISSA TP DAILY for DRY SKIN ON LEGS, #1 TUBE 04/12/18 Tramadol Hcl (TRAMADOL HCL) 50 Mg Tablet, 50 MG PO Q4HRS PRN for PAIN, TAB 04/11/18 Fluticasone/Salmeterol (ADVAIR 100-50 DISKUS) 1 Each Disk.w.dev, 1 INH IH BID for COPD, INHALER 04/11/18 Fexofenadine Hcl (FEXOFENADINE HCL) 180 Mg Tablet, 180 MG PO DAILY for ALLERGIES, TAB 04/11/18 Cholecalciferol (Vitamin D3) (VITAMIN D3) 1,000 Unit Tablet, 1000 UNIT PO DAILY for SUPPLEMENT, TAB 04/11/18 Warfarin Sodium (COUMADIN) 5 Mg Tablet, 1 TAB PO DAILY, #90 TAB 1 Refill 04/09/17 Lactobacillus Acidophilus (ACIDOPHILUS) 1 Each Capsule, 1 EACH PO BID, CAP 04/09/17 Vit A,C & E/Lutein/Minerals (OCUVITE TABLET) 1 Each Tablet, 1 EACH PO DAILY 04/21/16 Scheduled Atorvastatin Calcium (Atorvastatin Calcium), 20 MG PO QHS Calcium Acetate (Calcium Acetate), 667 MG PO TIDWMEALS, (Reported) Furosemide (Lasix), 1 TAB PO DAILY, (Reported) Magnesium Oxide (Mag-Oxide), 1 TAB PO DAILY, (Reported) Midodrine Hcl (Midodrine Hcl), 10 MG PO DAILY, (Reported) Scheduled PRN [Warfarin Per Pharmacy], 1 EACH MC PRN DAILY PRN for SEE COMMENTS Discontinued Medications Cholecalciferol (Vitamin D3) (Vitamin D3), 1,000 UNIT PO DAILY, (Reported) Fexofenadine Hcl (Fexofenadine Hcl), 180 MG PO DAILY, (Reported) Fluticasone/Salmeterol (Advair 100-50 Diskus), 1 INH IH BID, (Reported) Lactobacillus Acidophilus (Acidophilus), 1 EACH PO BID, (Reported) Mineral Oil/Petrolatum,White (Eucerin Creme ), 1 KLARISSA TP DAILY, (Reported) Tramadol Hcl (Tramadol Hcl), 50 MG PO Q4HRS PRN for PAIN, (Reported) Vit A,C & E/Lutein/Minerals (Ocuvite Tablet), 1 EACH PO DAILY, (Reported) Warfarin Sodium (Coumadin), 1 TAB PO DAILY, (Reported) [Glucosamine HCL], 1 TAB PO BID, (Reported) Justicifation of Admission Dx: Justifications for Admission: Justification of Admission Dx: N/A CASI CHOI MD Aug 24, 2021 20:40
== END 2021-08-22 18:22 | disposition home health service (06) | DRG 947 ==
LOC: 5 NORTH 16:46
PROVIDERS: ADMIT Internal Medicine; ATTEND Internal Medicine
PROC: 5A1D70Z Performance of Urinary Filtration, Intermittent, Less than 6 Hours Per Day (ICD-10-PCS; principal; 2021-08-22)
DX: R53.1 Weakness (principal); N18.6 End stage renal disease; I13.2 Hypertensive heart and chronic kidney disease with heart failure and with stage 5 chronic kidney disease, or end stage renal disease; I50.42 Chronic combined systolic (congestive) and diastolic (congestive) heart failure; Z99.2 Dependence on renal dialysis; Z91.15 Patient's noncompliance with renal dialysis; D63.1 Anemia in chronic kidney disease; I73.9 Peripheral vascular disease, unspecified; E66.9 Obesity, unspecified; I36.1 Nonrheumatic tricuspid (valve) insufficiency; I48.91 Unspecified atrial fibrillation; Z86.73 Personal history of transient ischemic attack (TIA), and cerebral infarction without residual deficits; Z82.49 Family history of ischemic heart disease and other diseases of the circulatory system; Z90.710 Acquired absence of both cervix and uterus; Z68.39 Body mass index [BMI] 39.0-39.9, adult
CPT/HCPCS: 36415; 36902; 80048; 80053; 85025; 85610; 86317; 87340; C1892; C1894; J3490; Q9967; 97110-GO; 97530-GO; 97530-GP; G0378

== ENCOUNTER 2021-09-02 10:50 | Inpatient (IN) | payer MEDICARE, BC ==
[~2021-09-02] VITALS: Ht 152.4 cm; Wt 93.7 kg
[~2021-09-02 10:50] MED LIST changes: +MIDO10TA PO
--- NOTE | 2021-09-02 11:47 | PHYS DOC ---
Past Medical History Past Medical History: A-Fib, Anemia, CHF, DVT, Hypertension, Renal Disease, UTI Additional Past Medical Histor: GENERALIZED WEAKNESS, SLEEP APNEA, dialysis, bilat. LE lymphedema, subdural Past Surgical History: Appendectomy, Hysterectomy, Pacemaker, Other Additional Past Surgical Histo: fistula placement, port insertion and removal, right ankle, subdural hemato Smoking Status: Never Smoker Alcohol Use: None Drug Use: None General Adult EDM: Chief Complaint: WEAKNESS/GENERALIZED HPI: HPI: Patient is a 75-year-old female who presented today with [facility] for generalized weakness. Patient states that she was here in early August 2019 for generalized weakness she was admitted and evaluated for rehab, she was sent home with home health care, she states that on Wednesday she was supposed to go to an inpatient rehab in [facility], she said she went there as she was tested for COVID and she tested positive for COVID so she was turned away and instructed to come back after quarantine period. She then called her dialysis center and they stated that they have a center that does COVID only patients, she states that they were unable to get her to dialysis yesterday due to not having an appropriate transportation to dialysis, she said that over the last 10 days she has grown increasingly weaker and she is having to call 911 to come and assist her from her wheelchair to her bed in her bed to her wheelchair. She does have a past medical history of congestive heart failure, end-stage renal disease for with hemodialysis on Wednesdays and Fridays, hypertension, and chronic lymphedema bilateral lower extremities. Review of Systems: Review of Systems: Constitutional: Denies fever or chills. [] Eyes: Denies change in visual acuity. [] HENT: Denies nasal congestion or sore throat. [] Respiratory: Denies cough or shortness of breath. [] Cardiovascular: Denies chest pain or edema. [] GI: Denies abdominal pain, nausea, vomiting, bloody stools or diarrhea. [] : Denies dysuria. [] Musculoskeletal: Generalized weakness denies back pain or joint pain. [] Integument: Denies rash. [] Neurologic: Denies headache, focal weakness or sensory changes. [] Endocrine: Denies polyuria or polydipsia. [] Lymphatic: Denies swollen glands. [] Psychiatric: Denies depression or anxiety. [] Heart Score: C/O Chest Pain: No Risk Factors: Risk Factors: DM, Current or recent (<one month) smoker, HTN, HLP, family history of CAD, obesity. Risk Scores: Score 0 - 3: 2.5% MACE over next 6 weeks - Discharge Home Score 4 - 6: 20.3% MACE over next 6 weeks - Admit for Clinical Observation Score 7 - 10: 72.7% MACE over next 6 weeks - Early Invasive Strategies Allergies: Allergies: Allergies Coded Allergies Type Severity Reaction Last Updated Verified No Known Medication Allergies Allergy Unknown 04/21/16 Yes Physical Exam: PE: Constitutional: Frail-appearing obese female, no acute distress, non-toxic appearance. [] HENT: Normocephalic, atraumatic, bilateral external ears normal, oropharynx moist, no oral exudates, nose normal. [] Eyes: PERRLA, EOMI, conjunctiva normal, no discharge. [] Neck: Normal range of motion, no tenderness, supple, no stridor. [] Cardiovascular:Heart rate paced, left upper chest pacemaker noted Lungs & Thorax: Bilateral breath sounds diminished Abdomen: Bowel sounds normal, soft, no tenderness, no masses, no pulsatile masses. [] Skin: Warm, dry, no erythema, no rash. [] Back: No tenderness, no CVA tenderness. [] Extremities: Bilateral leg edema 3+, did not have the patient ambulate due to generalized weakness she states she is having difficulty standing, pedal pulses are 1+, right upper arm AV graft noted positive thrill and bruit noted, left hip pain with palpation, no rotation noted, range of motion limited due to pain, left shoulder pain, with limited range of motion due to pain Neurologic: Alert and oriented X 3, normal motor function, normal sensory function, no focal deficits noted. [] Psychologic: Affect normal, judgement normal, mood normal. [] Current Patient Data: Labs: Laboratory Tests Test 09/02/21 11:46 09/02/21 11:59 09/02/21 12:07 Influenza Type A Antigen Negative Influenza Type B Antigen Negative SARS-CoV-2 Antigen (Rapid) Negative Activated Partial Thromboplast Time 36 SEC White Blood Count 7.8 x10^3/uL Red Blood Count 2.95 x10^6/uL Hemoglobin 9.2 g/dL Hematocrit 28.6 % Mean Corpuscular Volume 97 fL Mean Corpuscular Hemoglobin 31 pg Mean Corpuscular Hemoglobin Concent 32 g/dL Red Cell Distribution Width 16.9 % Platelet Count 209 x10^3/uL Neutrophils (%) (Auto) 78 % Lymphocytes (%) (Auto) 8 % Monocytes (%) (Auto) 10 % Eosinophils (%) (Auto) 3 % Basophils (%) (Auto) 0 % Neutrophils # (Auto) 6.1 x10^3/uL Lymphocytes # (Auto) 0.6 x10^3/uL Monocytes # (Auto) 0.8 x10^3/uL Eosinophils # (Auto) 0.2 x10^3/uL Basophils # (Auto) 0.0 x10^3/uL Sodium Level 141 mmol/L Potassium Level 4.4 mmol/L Chloride Level 100 mmol/L Carbon Dioxide Level 30 mmol/L Anion Gap 11 Blood Urea Nitrogen 74 mg/dL Creatinine 9.7 mg/dL Estimated GFR (Cockcroft-Gault) 4.8 BUN/Creatinine Ratio 8 Glucose Level 95 mg/dL Calcium Level 9.3 mg/dL Total Bilirubin 0.4 mg/dL Aspartate Amino Transf (AST/SGOT) 18 U/L Alanine Aminotransferase (ALT/SGPT) 15 U/L Alkaline Phosphatase 129 U/L Troponin I High Sensitivity 54 ng/L QO-Kex-C-Type Natriuretic Peptide 73125 pg/mL Total Protein 8.1 g/dL Albumin 3.2 g/dL Albumin/Globulin Ratio 0.7 Vital Signs: Vital Signs Date Time Temp Pulse Resp B/P (MAP) Pulse Ox O2 Delivery O2 Flow Rate FiO2 09/02/21 10:51 97.7 68 22 151/118 (129) 98 Room Air 97.7 Vital Signs Date Time Temp Pulse Resp B/P (MAP) Pulse Ox O2 Delivery O2 Flow Rate FiO2 09/02/21 10:51 97.7 68 22 151/118 (129) 98 Room Air 97.7 Vital Signs Date Time Temp Pulse Resp B/P (MAP) Pulse Ox O2 Delivery O2 Flow Rate FiO2 09/02/21 10:51 97.7 68 22 151/118 (129) 98 Room Air 97.7 EKG: EKG: [] Radiology/Procedures: Radiology/Procedures: REASON: HIP PAIN AND FALL PROCEDURE: HIP LEFT 2V WITH PELVIS EXAM: XR LT HIP (WITH OR WITHOUT PELVIS) 2 VIEWS 09/02/2021 11:40 AM CLINICAL INDICATION: Hip pain after fall COMPARISON: None TECHNIQUE: AP view of the pelvis. AP and frog-leg lateral view of the left hip. FINDINGS: The exam is limited due to underpenetration and body habitus. No displaced fracture. Alignment is normal. There is chronic appearing deformity of the right femoral head. There is severe right hip joint space narrowing and remodeling of the right acetabulum with proximal migration of the femur. Vascular calcifications are noted. IMPRESSION: 1. Limited exam due to body habitus and underpenetration. No displaced left hip fracture. 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 Electronically signed by: Narcisa Matias MD (09/02/2021 12:42 PM) [id number] REASON: WEAKNESS PROCEDURE: CHEST AP ONLY AP chest. HISTORY: Fall, hip pain, weakness AP view was taken of the chest. Comparison is made with a study from December 2020. The heart is enlarged. Left pacemaker and pacing leads are unchanged. There is a stent in the subclavian vessel on the right. There is arthritis in both shoulders. There are no acute infiltrates. There is no effusion. IMPRESSION: 1. Cardiomegaly. 2. No acute infiltrates. Electronically signed by: Dhaval Allan MD (09/02/2021 12:10 PM) [id number] [] Course & Med Decision Making: Course & Med Decision Making Pertinent Labs and Imaging studies reviewed. (See chart for details) [address] Luu with the hospitalist group and conferred about this patient's case and he is agreeable to admitting this patient for generalized weakness fluid overload and failure to thrive. He asked that nephrology be consulted for dialysis today. Nephrology was paged. [phone] Dr. Oliveira from nephrology did return call, I did review the case with her she states the patient can have dialysis tomorrow due to her potassium being n ormal and not needing oxygen at this time for fluid overload. Dragon Disclaimer: Dragon Disclaimer: This electronic medical record was generated, in whole or in part, using a voice recognition dictation system. Departure Departure Impression: Primary Impression: Generalized weakness Additional Impressions: Fluid overload Qualified Codes: E87.70 - Fluid overload, unspecified Failure to thrive in adult End stage renal disease on dialysis Disposition: 09 ADMITTED INPATIENT Admitting Physician: CAROL Condition: GUARDED Referrals: DARSHANA MENA MD (PCP) ANITHA ZHENG NET SORTER Sep 02, 2021 11:47
--- NOTE | 2021-09-02 12:13 | RAD ---
AP chest. HISTORY: Fall, hip pain, weakness AP view was taken of the chest. Comparison is made with a study from December 2020. The heart is enlarg ed. Left pacemaker and pacing leads are unchanged. There is a stent in the subclavian vessel on the r ight. There is arthritis in both shoulders. There are no acute infiltrates. There is no effusion. IMPRESSION: 1. Cardiomegaly. 2. No acute infiltrates. Electronically signed by: Dhaval Allan MD (09/02/2021 12:10 PM) [id number]
[2021-09-02 12:24] LABS: INFLUENZA A PATIENT NEGATIVE (NEGATIVE); INFLUENZA B PATIENT NEGATIVE (NEGATIVE)
[2021-09-02 12:31] LABS: BASO % 0 % (0-3); EOS # 0.2 x10^3/uL (0.0-0.7); EOS % 3 % (0-3); HEMATOCRIT 28.6 % (36.0-47.0); HEMOGLOBIN 9.2 g/dL (12.0-15.5); LYMPH # 0.6 x10^3/uL (1.0-4.8); LYMPH % 8 % (24-48); MEAN CORPUSCULAR HEMOGLOBIN 31 pg (25-35); MEAN CORPUSCULAR HGB CONC 32 g/dL (31-37); MEAN CORPUSCULAR VOLUME 97 fL (79-100); MONO # 0.8 x10^3/uL (0.0-1.1); MONO % 10 % (0-9); NEUT # 6.1 x10^3/uL (1.8-7.7); NEUT % 78 % (31-73); PLATELET COUNT 209 x10^3/uL (140-400); RED BLOOD COUNT 2.95 x10^6/uL (3.50-5.40); RED CELL DISTRIBUTION WIDTH 16.9 % (11.5-14.5); WHITE BLOOD COUNT 7.8 x10^3/uL (4.0-11.0)
[2021-09-02 12:40] LABS: CALCIUM 9.3 mg/dL (8.5-10.1); CREATININE 9.7 mg/dL (0.6-1.0); GFR 4.8; POTASSIUM 4.4 mmol/L (3.5-5.1)
[2021-09-02 12:43] LABS: ALBUMIN 3.2 g/dL (3.4-5.0); ALBUMIN/GLOBULIN RATIO 0.7 (1.0-1.7); TOTAL BILIRUBIN 0.4 mg/dL (0.2-1.0); TOTAL PROTEIN 8.1 g/dL (6.4-8.2)
--- NOTE | 2021-09-02 12:45 | RAD ---
EXAM: XR LT HIP (WITH OR WITHOUT PELVIS) 2 VIEWS 09/02/2021 11:40 AM CLINICAL INDICATION: Hip pain after fall COMPARISON: None TECHNIQUE: AP view of the pelvis. AP and frog-leg lateral view of the left hip. FINDINGS: The exam is limited due to underpenetration and body habitus. No displaced fracture. Align ment is normal. There is chronic appearing deformity of the right femoral head. There is severe right hip joint space narrowing and remodeling of the right acetabulum with proximal migration of the femu r. Vascular calcifications are noted. IMPRESSION: 1. Limited exam due to body habitus and underpenetration. No displaced left hip fracture. 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 Electronically signed by: Narcisa Matias MD (09/02/2021 12:42 PM) [id number]
[2021-09-02 13:16] LABS: PROTHROMBIN TIME PATIENT 27.2 SEC (11.7-14.0)
[2021-09-02] MEDS ORDERED: ACETAMINOPHEN 325 MG TABLET. PO PRN (15:30)
[2021-09-02] MEDS ORDERED: DOCUSATE SODIUM 100 MG CAPSULE. PO PRN (15:30)
[2021-09-02] MEDS ORDERED: PROCHLORPERAZINE 10 MG/2 ML VIAL. IV PRN (15:30)
[2021-09-02] MEDS ORDERED: SENNOSIDES 8.6 MG TABLET PO PRN (15:30)
[2021-09-02] MEDS ORDERED: diphenhydrAMINE 50 MG/ML VIAL IVP PRN (15:30)
[2021-09-02] MEDS ORDERED: DEXTROSE 50% 25 GM / 50ML DISP.SYRIN. IV PRN (15:30)
[2021-09-02] MEDS ORDERED: ONDANSETRON PF 4 MG/2 ML VIAL. IVP PRN (15:30)
[2021-09-02] MEDS ORDERED: diphenhydrAMINE HCL 25 MG CAPSULE PO PRN ×2 (15:30)
[2021-09-02] MEDS ORDERED: LORazepam 0.5 MG TABLET PO PRN (15:30)
[2021-09-02] MEDS ORDERED: ZOLPIDEM 5 MG TABLET. PO PRN (15:30)
--- NOTE | 2021-09-02 15:32 | PDOC1 ---
History and Physical Date of Service: DOS: DATE: 09/02/21 TIME: 15:19 Chief Complaint: Chief Complain: Weakness History of Present Illness: HPI: 75-year-old female with multiple comorbidities who presents to the ED for generalized weakness that has been worsening since time of her discharge in August. Patient was sexually trying to go to rehab when she was sent back patient is COVID-positive and the facility was not excepting COVID infection patients. She was actually referred by her PCP to go to [facility] rehab. Unfortunately, she has not been able to take care of herself since that time and she was unable to go to dialysis. Her last dialysis session was last Wednesday. Patient only complains of fatigue and some lower extremity weakness. Denies any fevers, chest pain, shortness of breath, abdominal pain, diarrhea, constipation or syncope or palpitations. Past Medical/Surgical History: PMH/PSH: Past Medical History: A-Fib, Anemia, CHF, DVT, Hypertension, Renal Disease, UTI, GENERALIZED WEAKNESS, SLEEP APNEA, dialysis, bilat. LE lymphedema, subdural Past Surgical History: Appendectomy, Hysterectomy, Pacemaker, fistula placement, port insertion and removal, right ankle, subdural hemato Allergies: Allergies: Coded Allergies: No Known Medication Allergies (Verified Allergy, Unknown, 04/21/16) Family History: Family History: Reviewed with no relative findings in the chart Social History: Social History: Smoking Status: Never Smoker Alcohol Use: None Drug Use: None Current Medications: Current Medications Active Scripts Active Atorvastatin Calcium 20 Mg Tablet 20 Mg PO QHS 30 Days [Warfarin Per Pharmacy] 1 EACH Each 1 Each MC PRN DAILY PRN 30 Days Reported Midodrine Hcl 10 Mg Tablet 10 Mg PO DAILY Calcium Acetate 667 Mg Tablet 667 Mg PO TIDWMEALS Mag-Oxide (Magnesium Oxide) 400 Mg Tablet 1 Tab PO DAILY Lasix (Furosemide) 40 Mg Tablet 1 Tab PO DAILY ROS: Review of Systems Review of System REVIEW OF SYSTEMS: GENERAL: Positive for fatigue and weakness SKIN: No bruising, hair changes or rashes. EYES: No blurred, double or loss of vision. NOSE AND THROAT: No history of nosebleeds, hoarseness or sore throat. HEART: No history of palpitations, chest pain or shortness of breath on exertion. LUNGS: Denies cough, hemoptysis, wheezing or shortness of breath. GASTROINTESTINAL: Denies changes in appetite, nausea, vomiting, diarrhea or constipation. GENITOURINARY: No history of frequency, urgency, hesitancy or nocturia. NEUROLOGIC: Denies history of numbness, tingling, or tremor. PSYCHIATRIC: No history of panic, anxiety or depression. ENDOCRINE: No history of heat or cold intolerance, polyuria or polydipsia. EXTREMITIES: Denies joint pain, pain on walking or stiffness. Physical Exam: Vital Signs: Vital Signs Date Time Temp Pulse Resp B/P (MAP) Pulse Ox O2 Delivery O2 Flow Rate FiO2 09/02/21 10:51 97.7 68 22 151/118 (129) 98 Room Air 97.7 Physcial Exam: General: Well developed, well nourished, no acute distress, well appearing HEENT: Pupils equally round and reactive to light, EOMI, no discharge, normal conjunctiva Neck: Supple, no nuchal rigidity, no JVD, trachea midline, no tenderness Cardiac: RRR, no murmurs, no gallops, no rubs Chest/Lungs: CTAB, no wheeze, no rhonchi, no crackles Abdomen: soft, non-distended, no guarding, no peritoneal signs, non-tender Back: No tenderness Extremities: +3 pedal edema, pulses intact, non-tender,capillary refill <3 sec bilateral upper and lower extremities, right upper extremity AV graft with palpable thrill. Neuro: Alert and oriented x 4, no focal deficits, normal speech Labs: Labs: Laboratory Tests Test 09/02/21 11:46 09/02/21 11:59 09/02/21 12:07 Influenza Type A Antigen Negative (NEGATIVE) Influenza Type B Antigen Negative (NEGATIVE) SARS-CoV-2 Antigen (Rapid) Negative (NEGATIVE) Activated Partial Thromboplast Time 36 SEC (24-38) White Blood Count 7.8 x10^3/uL (4.0-11.0) Red Blood Count 2.95 x10^6/uL (3.50-5.40) Hemoglobin 9.2 g/dL (12.0-15.5) Hematocrit 28.6 % (36.0-47.0) Mean Corpuscular Volume 97 fL (79-100) Mean Corpuscular Hemoglobin 31 pg (25-35) Mean Corpuscular Hemoglobin Concent 32 g/dL (31-37) Red Cell Distribution Width 16.9 % (11.5-14.5) Platelet Count 209 x10^3/uL (140-400) Neutrophils (%) (Auto) 78 % (31-73) Lymphocytes (%) (Auto) 8 % (24-48) Monocytes (%) (Auto) 10 % (0-9) Eosinophils (%) (Auto) 3 % (0-3) Basophils (%) (Auto) 0 % (0-3) Neutrophils # (Auto) 6.1 x10^3/uL (1.8-7.7) Lymphocytes # (Auto) 0.6 x10^3/uL (1.0-4.8) Monocytes # (Auto) 0.8 x10^3/uL (0.0-1.1) Eosinophils # (Auto) 0.2 x10^3/uL (0.0-0.7) Basophils # (Auto) 0.0 x10^3/uL (0.0-0.2) Prothrombin Time 27.2 SEC (11.7-14.0) Prothromb Time International Ratio 2.6 (0.8-1.1) Sodium Level 141 mmol/L (136-145) Potassium Level 4.4 mmol/L (3.5-5.1) Chloride Level 100 mmol/L (98-107) Carbon Dioxide Level 30 mmol/L (21-32) Anion Gap 11 (6-14) Blood Urea Nitrogen 74 mg/dL (7-20) Creatinine 9.7 mg/dL (0.6-1.0) Estimated GFR (Cockcroft-Gault) 4.8 BUN/Creatinine Ratio 8 (6-20) Glucose Level 95 mg/dL (70-99) Calcium Level 9.3 mg/dL (8.5-10.1) Total Bilirubin 0.4 mg/dL (0.2-1.0) Aspartate Amino Transf (AST/SGOT) 18 U/L (15-37) Alanine Aminotransferase (ALT/SGPT) 15 U/L (14-59) Alkaline Phosphatase 129 U/L (46-116) Troponin I High Sensitivity 54 ng/L (4-50) OW-Tij-Q-Type Natriuretic Peptide 95332 pg/mL (0-449) Total Protein 8.1 g/dL (6.4-8.2) Albumin 3.2 g/dL (3.4-5.0) Albumin/Globulin Ratio 0.7 (1.0-1.7) Laboratory Tests Test 09/02/21 11:46 09/02/21 11:59 09/02/21 12:07 Influenza Type A Antigen Negative (NEGATIVE) Influenza Type B Antigen Negative (NEGATIVE) SARS-CoV-2 Antigen (Rapid) Negative (NEGATIVE) Activated Partial Thromboplast Time 36 SEC (24-38) White Blood Count 7.8 x10^3/uL (4.0-11.0) Red Blood Count 2.95 x10^6/uL (3.50-5.40) Hemoglobin 9.2 g/dL (12.0-15.5) Hematocrit 28.6 % (36.0-47.0) Mean Corpuscular Volume 97 fL (79-100) Mean Corpuscular Hemoglobin 31 pg (25-35) Mean Corpuscular Hemoglobin Concent 32 g/dL (31-37) Red Cell Distribution Width 16.9 % (11.5-14.5) Platelet Count 209 x10^3/uL (140-400) Neutrophils (%) (Auto) 78 % (31-73) Lymphocytes (%) (Auto) 8 % (24-48) Monocytes (%) (Auto) 10 % (0-9) Eosinophils (%) (Auto) 3 % (0-3) Basophils (%) (Auto) 0 % (0-3) Neutrophils # (Auto) 6.1 x10^3/uL (1.8-7.7) Lymphocytes # (Auto) 0.6 x10^3/uL (1.0-4.8) Monocytes # (Auto) 0.8 x10^3/uL (0.0-1.1) Eosinophils # (Auto) 0.2 x10^3/uL (0.0-0.7) Basophils # (Auto) 0.0 x10^3/uL (0.0-0.2) Prothrombin Time 27.2 SEC (11.7-14.0) Prothromb Time International Ratio 2.6 (0.8-1.1) Sodium Level 141 mmol/L (136-145) Potassium Level 4.4 mmol/L (3.5-5.1) Chloride Level 100 mmol/L (98-107) Carbon Dioxide Level 30 mmol/L (21-32) Anion Gap 11 (6-14) Blood Urea Nitrogen 74 mg/dL (7-20) Creatinine 9.7 mg/dL (0.6-1.0) Estimated GFR (Cockcroft-Gault) 4.8 BUN/Creatinine Ratio 8 (6-20) Glucose Level 95 mg/dL (70-99) Calcium Level 9.3 mg/dL (8.5-10.1) Total Bilirubin 0.4 mg/dL (0.2-1.0) Aspartate Amino Transf (AST/SGOT) 18 U/L (15-37) Alanine Aminotransferase (ALT/SGPT) 15 U/L (14-59) Alkaline Phosphatase 129 U/L (46-116) Troponin I High Sensitivity 54 ng/L (4-50) EM-Aak-H-Type Natriuretic Peptide 25122 pg/mL (0-449) Total Protein 8.1 g/dL (6.4-8.2) Albumin 3.2 g/dL (3.4-5.0) Albumin/Globulin Ratio 0.7 (1.0-1.7) Images: Images PROCEDURE: CHEST AP ONLY AP chest. HISTORY: Fall, hip pain, weakness AP view was taken of the chest. Comparison is made with a study from December 2020. The heart is enlarged. Left pacemaker and pacing leads are unchanged. There is a stent in the subclavian vessel on the right. There is arthritis in both shoulders. There are no acute infiltrates. There is no effusion. IMPRESSION: 1. Cardiomegaly. 2. No acute infiltrates. PROCEDURE: HIP LEFT 2V WITH PELVIS EXAM: XR LT HIP (WITH OR WITHOUT PELVIS) 2 VIEWS 09/02/2021 11:40 AM CLINICAL INDICATION: Hip pain after fall COMPARISON: None TECHNIQUE: AP view of the pelvis. AP and frog-leg lateral view of the left hip. FINDINGS: The exam is limited due to underpenetration and body habitus. No displaced fracture. Alignment is normal. There is chronic appearing deformity of the right femoral head. There is severe right hip joint space narrowing and remodeling of the right acetabulum with proximal migration of the femur. Vascular calcifications are noted. IMPRESSION: 1. Limited exam due to body habitus and underpenetration. No displaced left hip fracture. 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 Assessment/Plan Assessment/Plan Failure to thrive in an adult Acute volume overload Acute electrolyte derangement consistent with ESRD COVID-positive infection Anemia secondary to ESRD History of atrial fibrillation on warfarin Severe DJD of the right hip History of CHF, systolic with LVEF of 40 to 45% on echo 12/17/2020 History of ESRD on HD MWF History of hypertension Morbid obesity Admit to hospitalist service for further management Nephrology consult for HD PT OT evaluation Strict I's/O No IV fluids COVID isolation No O2 required at this time Warfarin for DVT prophylaxis Protonix GI prophylaxis ADA diet CODE STATUS full Discussed with RN and SW Disposition inpatient management as above DPOA: Son Justifications for Admission Other Justification CARMENCITA GALLARDO MD Sep 02, 2021 15:32
--- NOTE | 2021-09-02 15:37 | NUR ---
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 Target range for this patient is: 2 -3 P: Warfarin dose: 2.5 mg PO DAILY Bridge Therapy: None Next INR due 09/03/21 AM Pharmacy anticoagulation service will continue to follow. NIDA PATEL [facility], 09/02/21 [id number]
[2021-09-02 15:39] VITALS: BP 109/19
[2021-09-02] MEDS ORDERED: WARFARIN 2.5 MG TABLET. PO SCH (16:00)
[2021-09-02] MEDS: CALCIUM ACETATE 667 MG CAPSULE PO SCH (17:07)
[2021-09-02 19:00] VITALS: BP 101/32
--- NOTE | 2021-09-02 19:06 | EKG ---
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
[2021-09-02] MEDS: ATORVASTATIN CALCIUM 20 MG TABLET PO SCH (20:43)
[2021-09-02] MEDS ORDERED: HEPARIN for SUB-Q USE 5,000 UNIT/ML VIAL. SQ SCH (21:00)
[2021-09-02 23:00] VITALS: BP 116/42
[2021-09-03 03:00] VITALS: BP 118/43
[2021-09-03 07:00] VITALS: BP 127/43
[2021-09-03] MEDS: CALCIUM ACETATE 667 MG CAPSULE PO SCH ×4 (07:21→17:08)
[2021-09-03] MEDS ORDERED: DIALYSIS PATIENT. MC PRN ×2 (07:45)
[2021-09-03] MEDS ORDERED: ALBUMIN HUMAN 25% 200 ML IV PRN (07:45)
[2021-09-03] MEDS ORDERED: IV NORMAL SALINE 1000ML BAG 1,000 ML IV PRN ×2 (07:45)
[2021-09-03 08:24] LABS: BASO % 1 % (0-3); EOS # 0.3 x10^3/uL (0.0-0.7); EOS % 5 % (0-3); HEMATOCRIT 27.7 % (36.0-47.0); LYMPH # 0.7 x10^3/uL (1.0-4.8); LYMPH % 11 % (24-48); MEAN CORPUSCULAR HEMOGLOBIN 32 pg (25-35); MEAN CORPUSCULAR HGB CONC 33 g/dL (31-37); MEAN CORPUSCULAR VOLUME 98 fL (79-100); MONO # 0.7 x10^3/uL (0.0-1.1); MONO % 13 % (0-9); NEUT # 4.1 x10^3/uL (1.8-7.7); NEUT % 71 % (31-73); PLATELET COUNT 173 x10^3/uL (140-400); RED BLOOD COUNT 2.84 x10^6/uL (3.50-5.40); RED CELL DISTRIBUTION WIDTH 16.8 % (11.5-14.5); WHITE BLOOD COUNT 5.7 x10^3/uL (4.0-11.0)
[2021-09-03 08:35] LABS: CALCIUM 8.8 mg/dL (8.5-10.1); CREATININE 10.5 mg/dL (0.6-1.0); GFR 4.3; MAGNESIUM 2.4 mg/dL (1.8-2.4); PHOSPHORUS 6.5 mg/dL (2.6-4.7); POTASSIUM 4.4 mmol/L (3.5-5.1)
--- NOTE | 2021-09-03 08:41 | PDOC ---
[employer] PROGRESS NOTE Date of Service DOS: DATE: 09/03/21 TIME: 08:40 Chief Complaint Chief Complaint Failure to thrive in an adult Acute volume overload Acute electrolyte derangement consistent with ESRD COVID-positive infection Anemia secondary to ESRD History of atrial fibrillation on warfarin Severe DJD of the right hip History of CHF, systolic with LVEF of 40 to 45% on echo 12/17/2020 History of ESRD on HD MWF History of hypertension Morbid obesity History of Present Illness History of Present Illness 09/03/2021 Patient seen and examined Discussed with RN Chart reviewed Her last dialysis was Wednesday 6 days ago according to her Vitals/I&O Vitals/I&O: Vital Signs Date Time Temp Pulse Resp B/P (MAP) Pulse Ox O2 Delivery O2 Flow Rate FiO2 09/03/21 07:00 98.0 69 20 127/43 (71) 97 Room Air 98.0 I & O 09/02/21 09/02/21 09/03/21 15:00 23:00 07:00 Intake Total 380 ml 180 ml Balance 380 ml 180 ml Physical Exam General: Alert Heart: Regular rate Lungs: Clear Abdomen: Soft Extremities: No clubbing Skin: No rashes Labs Labs: Laboratory Tests Test 09/02/21 11:46 09/02/21 11:59 09/02/21 12:07 09/03/21 06:50 Coronavirus (COVID-19)(PCR) Not detected (NOT DETECTD) Influenza Type A Antigen Negative (NEGATIVE) Influenza Type B Antigen Negative (NEGATIVE) SARS-CoV-2 Antigen (Rapid) Negative (NEGATIVE) Activated Partial Thromboplast Time 36 SEC (24-38) White Blood Count 7.8 x10^3/uL (4.0-11.0) 5.7 x10^3/uL (4.0-11.0) Red Blood Count 2.95 x10^6/uL (3.50-5.40) 2.84 x10^6/uL (3.50-5.40) Hemoglobin 9.2 g/dL (12.0-15.5) 9.0 g/dL (12.0-15.5) Hematocrit 28.6 % (36.0-47.0) 27.7 % (36.0-47.0) Mean Corpuscular Volume 97 fL (79-100) 98 fL (79-100) Mean Corpuscular Hemoglobin 31 pg (25-35) 32 pg (25-35) Mean Corpuscular Hemoglobin Concent 32 g/dL (31-37) 33 g/dL (31-37) Red Cell Distribution Width 16.9 % (11.5-14.5) 16.8 % (11.5-14.5) Platelet Count 209 x10^3/uL (140-400) 173 x10^3/uL (140-400) Neutrophils (%) (Auto) 78 % (31-73) 71 % (31-73) Lymphocytes (%) (Auto) 8 % (24-48) 11 % (24-48) Monocytes (%) (Auto) 10 % (0-9) 13 % (0-9) Eosinophils (%) (Auto) 3 % (0-3) 5 % (0-3) Basophils (%) (Auto) 0 % (0-3) 1 % (0-3) Neutrophils # (Auto) 6.1 x10^3/uL (1.8-7.7) 4.1 x10^3/uL (1.8-7.7) Lymphocytes # (Auto) 0.6 x10^3/uL (1.0-4.8) 0.7 x10^3/uL (1.0-4.8) Monocytes # (Auto) 0.8 x10^3/uL (0.0-1.1) 0.7 x10^3/uL (0.0-1.1) Eosinophils # (Auto) 0.2 x10^3/uL (0.0-0.7) 0.3 x10^3/uL (0.0-0.7) Basophils # (Auto) 0.0 x10^3/uL (0.0-0.2) 0.0 x10^3/uL (0.0-0.2) Prothrombin Time 27.2 SEC (11.7-14.0) Prothromb Time International Ratio 2.6 (0.8-1.1) Sodium Level 141 mmol/L (136-145) 139 mmol/L (136-145) Potassium Level 4.4 mmol/L (3.5-5.1) 4.4 mmol/L (3.5-5.1) Chloride Level 100 mmol/L (98-107) 99 mmol/L (98-107) Carbon Dioxide Level 30 mmol/L (21-32) 30 mmol/L (21-32) Anion Gap 11 (6-14) 10 (6-14) Blood Urea Nitrogen 74 mg/dL (7-20) 76 mg/dL (7-20) Creatinine 9.7 mg/dL (0.6-1.0) 10.5 mg/dL (0.6-1.0) Estimated GFR (Cockcroft-Gault) 4.8 4.3 BUN/Creatinine Ratio 8 (6-20) Glucose Level 95 mg/dL (70-99) 80 mg/dL (70-99) Calcium Level 9.3 mg/dL (8.5-10.1) 8.8 mg/dL (8.5-10.1) Total Bilirubin 0.4 mg/dL (0.2-1.0) Aspartate Amino Transf (AST/SGOT) 18 U/L (15-37) Alanine Aminotransferase (ALT/SGPT) 15 U/L (14-59) Alkaline Phosphatase 129 U/L (46-116) Troponin I High Sensitivity 54 ng/L (4-50) LB-Zij-Q-Type Natriuretic Peptide 79650 pg/mL (0-449) Total Protein 8.1 g/dL (6.4-8.2) Albumin 3.2 g/dL (3.4-5.0) Albumin/Globulin Ratio 0.7 (1.0-1.7) Phosphorus Level 6.5 mg/dL (2.6-4.7) Magnesium Level 2.4 mg/dL (1.8-2.4) Assessment and Plan Assessmemt and Plan Problems Medical Problems: (1) End stage renal disease on dialysis Status: Acute (2) Failure to thrive in adult Status: Acute (3) Fluid overload Status: Acute (4) Generalized weakness Status: Acute Failure to thrive in an adult Acute volume overload Acute electrolyte derangement consistent with ESRD COVID-positive infection Anemia secondary to ESRD History of atrial fibrillation on warfarin Severe DJD of the right hip History of CHF, systolic with LVEF of 40 to 45% on echo 12/17/2020 History of ESRD on HD MWF History of hypertension Morbid obesity Plan Dialysis per nephrology Home meds Trend labs DVT prophylaxis PT OT Protonix for GI prophylaxis Full code Suspect she may need placement Discussed with RN Comment Review of Relevant I have reviewed the following items maya (where applicable) has been applied. Medications: Current Medications Medications (Trade) Dose Ordered Sig/Radha Route PRN Reason Start Time Stop Time Status Last Admin Dose Admin Atorvastatin Calcium (Lipitor) 20 mg QHS PO 09/02/21 21:00 09/02/21 20:43 Calcium Acetate (Phoslo) 667 mg TIDWMEALS PO 09/02/21 17:00 09/03/21 07:21 Warfarin Sodium (Coumadin Per Pharmacy) 1 each PRN DAILY PRN MC SEE COMMENTS 09/02/21 15:30 09/02/21 15:36 Warfarin Sodium (Coumadin) 2.5 mg DAILY16 PO 09/02/21 16:00 09/02/21 17:06 Justifications for Admission Other Justification Failure to thrive in an adult CASTLEKATYA III DO Sep 03, 2021 08:41
[2021-09-03 08:46] LABS: PROTHROMBIN TIME PATIENT 32.9 SEC (11.7-14.0)
[2021-09-03] MEDS: MIDODRINE 5 MG TABLET PO SCH (10:59)
--- NOTE | 2021-09-03 11:13 | PDOC2 ---
CONSULT Date of Consult Date of Consult DATE: 09/03/21 TIME: 11:13 Reason for Consult Reason for Consult: ESRD Source Source: Chart review, Patient History of Present Illness Reason for Visit: Patient is a 75-year-old AA female who presented to the ER with EMS for generalized weakness. She was admitted with similar complaints earlier this month , was evaluated for rehab, and sent home with home health care. She reports that on Wednesday she was supposed to go to an inpatient rehab in [facility], she was tested positive for COVID so she was turned away and instructed to come back after quarantine period. She called her dialysis center and they stated that they have a center that does COVID only patients, she states that they were unable to get her to dialysis on Wednesday She states that over the last 10 days she has grown increasingly weaker and she is having to call 911 to come and assist her from her wheelchair to her bed in her bed to her wheelchair. Denies any SOB, No CP. No F/C. Denies any N/V/D, No abdominal pain Past Medical History Cardiovascular: AFIB, CHF, HTN Pulmonary: Other CENTRAL NERVOUS SYSTEM: CVA GI: No pertinent hx, GERD Heme/Onc: Anemia NOS Hepatobiliary: No pertinent hx Psych: No pertinent hx Rheumatologic: No pertinent hx Infectious disease: No pertinent hx Renal/: Chronic renal insuff Endocrine: No pertinent hx Past Surgical History Past Surgical History: Pacemaker, Appendectomy, Hysterectomy, Other Family History Family History: Coronary Artery Disease Social History ALCOHOL: none Drugs: None Lives: with Family Current Problem List Problem List Problems Medical Problems: (1) End stage renal disease on dialysis Status: Acute (2) Failure to thrive in adult Status: Acute (3) Fluid overload Status: Acute (4) Generalized weakness Status: Acute Current Medications Current Medications Current Medications Sennosides (Senna) 17.2 mg PRN BID PRN PO CONSTIPATION; Start 09/02/21 at 15:30 Docusate Sodium (Colace) 100 mg PRN DAILY PRN PO HARD STOOLS; Start 09/02/21 at 15:30 Ondansetron HCl (Zofran) 4 mg PRN Q6HRS PRN IVP NAUSEA/VOMITING, 1st CHOICE; Start 09/02/21 at 15:30 Dextrose (Dextrose 50%-Water Syringe) 12.5 gm PRN Q15MIN PRN IV SEE COMMENTS; Start 09/02/21 at 15:30 Acetaminophen (Tylenol) 650 mg PRN Q4HRS PRN PO TEMP OVER 100.4F OR MILD PAIN; Start 09/02/21 at 15:30 Lorazepam (Ativan) 0.5 mg PRN Q6HRS PRN PO ANXIETY / AGITATION; Start 09/02/21 at 15:30 Lorazepam (Ativan Inj) 0.25 mg PRN Q4HRS PRN IV ANXIETY / AGITATION; Start 09/02/21 at 15:30 Heparin Sodium (Porcine) (Heparin Sodium) 5,000 unit Q12HR SQ ; Start 09/02/21 at 21:00; Stop 09/02/21 at 15:28; Status DC Prochlorperazine Edisylate (Compazine) 10 mg PRN Q6HRS PRN IV NAUSEA/VOMITING, 2nd CHOICE; Start 09/02/21 at 15:30 Diphenhydramine HCl (Benadryl) 25 mg PRN Q6HRS PRN IVP ITCHING; Start 09/02/21 at 15:30 Diphenhydramine HCl (Benadryl) 25 mg PRN Q6HRS PRN PO ITCHING; Start 09/02/21 at 15:30 Diphenhydramine HCl (Benadryl) 25 mg PRN QHS PRN PO INSOMNIA, 1st CHOICE; Start 09/02/21 at 15:30 Zolpidem Tartrate (Ambien) 2.5 mg PRN QHS PRN PO INSOMNIA, 2nd CHOICE; Start at 15:30 Atorvastatin Calcium (Lipitor) 20 mg QHS PO Last administered on 09/02/21at 20:43; Start 09/02/21 at 21:00 Calcium Acetate (Phoslo) 667 mg TIDWMEALS PO Last administered on 09/03/21at 07:21; Start 09/02/21 at 17:00 Warfarin Sodium (Coumadin Per Pharmacy) 1 each PRN DAILY PRN MC SEE COMMENTS Last administered on 09/02/21at 15:36; Start 09/02/21 at 15:30 Warfarin Sodium (Coumadin) 2.5 mg DAILY16 PO Last administered on 09/02/21at 17:06; Start 09/02/21 at 16:00 Sodium Chloride 1,000 ml @ 1,000 mls/hr Q1H PRN IV hypotension; Start 09/03/21 at 07:45; Stop 09/03/21 at 13:44 Albumin Human 200 ml @ 200 mls/hr 1X PRN PRN IV Hypotension; Start 09/03/21 at 07:45; Stop 09/03/21 at 13:44 Sodium Chloride 1,000 ml @ 400 mls/hr Q2H30M PRN IV PATENCY; Start 09/03/21 at 07:45; Stop 09/03/21 at 19:44 Info (PHARMACY MONITORING -- do not chart) 1 each PRN DAILY PRN MC SEE COMMENTS; Start 09/03/21 at 07:45 Info (PHARMACY MONITORING -- do not chart) 1 each PRN DAILY PRN MC SEE COMMENTS; Start 09/03/21 at 07:45 Midodrine (Proamatine) 10 mg DAILY PO Last administered on 09/03/21at 10:59; Start 09/03/21 at 11:30 Active Scripts Active Atorvastatin Calcium 20 Mg Tablet 20 Mg PO QHS 30 Days [Warfarin Per Pharmacy] 1 EACH Each 1 Each MC PRN DAILY PRN 30 Days Reported Midodrine Hcl 10 Mg Tablet 10 Mg PO DAILY Calcium Acetate 667 Mg Tablet 667 Mg PO TIDWMEALS Mag-Oxide (Magnesium Oxide) 400 Mg Tablet 1 Tab PO DAILY Lasix (Furosemide) 40 Mg Tablet 1 Tab PO DAILY Allergies Allergies: Coded Allergies: No Known Medication Allergies (Verified Allergy, Unknown, 04/21/16) ROS Review of System As per HPI, rest of the ROS is negative Physical Exam Physical Exam General: Alert, Oriented X3, Cooperative, No acute distress HEENT: Atraumatic, PERRLA, EOMI, Mucous membr. moist/pink Neck Supple Lungs: CTA , Non labored Heart: no murmurs, irregularly irregular Extremities: No clubbing, No cyanosis, trace edema Skin: No rashes Neuro: Cranial nerves 3-12 NL, moving all extremities Psych/Mental Status: Mood NL, cooperative No Hayes, No CVA or SP tenderness Vital Signs Vital Signs Date Time Temp Pulse Resp B/P (MAP) Pulse Ox O2 Delivery O2 Flow Rate FiO2 09/03/21 10:59 65 106/49 09/03/21 08:00 Room Air 09/03/21 07:00 98.0 20 97 98.0 Assessment & Plan ESRD- On HD MWF, .No clinical or imaging indication for Vol Overload at Presentation on 09/02 . E-Lytes stable. Dialysis today Seen during treatment, Tolerating well. Continue as ordered. Edd VILLARREAL Generalized Weakness- primary managing Failure to thrive in an adult Anemia- Monitor, TRACEY Chronic combined CHF - EF 40-45%. Global hypokinesis. mild tricuspid regurgitation. PA pressure approximately 58 mm HTN- BP stable COVID-positive @ Outside Rehab facility PVD Atrial fibrillation History CVA Labs Labs Laboratory Tests Test 09/02/21 11:46 09/02/21 11:59 09/02/21 12:07 09/03/21 06:50 Coronavirus (COVID-19)(PCR) Not detected (NOT DETECTD) Influenza Type A Antigen Negative (NEGATIVE) Influenza Type B Antigen Negative (NEGATIVE) SARS-CoV-2 Antigen (Rapid) Negative (NEGATIVE) Activated Partial Thromboplast Time 36 SEC (24-38) White Blood Count 7.8 x10^3/uL (4.0-11.0) 5.7 x10^3/uL (4.0-11.0) Red Blood Count 2.95 x10^6/uL (3.50-5.40) 2.84 x10^6/uL (3.50-5.40) Hemoglobin 9.2 g/dL (12.0-15.5) 9.0 g/dL (12.0-15.5) Hematocrit 28.6 % (36.0-47.0) 27.7 % (36.0-47.0) Mean Corpuscular Volume 97 fL (79-100) 98 fL (79-100) Mean Corpuscular Hemoglobin 31 pg (25-35) 32 pg (25-35) Mean Corpuscular Hemoglobin Concent 32 g/dL (31-37) 33 g/dL (31-37) Red Cell Distribution Width 16.9 % (11.5-14.5) 16.8 % (11.5-14.5) Platelet Count 209 x10^3/uL (140-400) 173 x10^3/uL (140-400) Neutrophils (%) (Auto) 78 % (31-73) 71 % (31-73) Lymphocytes (%) (Auto) 8 % (24-48) 11 % (24-48) Monocytes (%) (Auto) 10 % (0-9) 13 % (0-9) Eosinophils (%) (Auto) 3 % (0-3) 5 % (0-3) Basophils (%) (Auto) 0 % (0-3) 1 % (0-3) Neutrophils # (Auto) 6.1 x10^3/uL (1.8-7.7) 4.1 x10^3/uL (1.8-7.7) Lymphocytes # (Auto) 0.6 x10^3/uL (1.0-4.8) 0.7 x10^3/uL (1.0-4.8) Monocytes # (Auto) 0.8 x10^3/uL (0.0-1.1) 0.7 x10^3/uL (0.0-1.1) Eosinophils # (Auto) 0.2 x10^3/uL (0.0-0.7) 0.3 x10^3/uL (0.0-0.7) Basophils # (Auto) 0.0 x10^3/uL (0.0-0.2) 0.0 x10^3/uL (0.0-0.2) Prothrombin Time 27.2 SEC (11.7-14.0) 32.9 SEC (11.7-14.0) Prothromb Time International Ratio 2.6 (0.8-1.1) 3.3 (0.8-1.1) Sodium Level 141 mmol/L (136-145) 139 mmol/L (136-145) Potassium Level 4.4 mmol/L (3.5-5.1) 4.4 mmol/L (3.5-5.1) Chloride Level 100 mmol/L (98-107) 99 mmol/L (98-107) Carbon Dioxide Level 30 mmol/L (21-32) 30 mmol/L (21-32) Anion Gap 11 (6-14) 10 (6-14) Blood Urea Nitrogen 74 mg/dL (7-20) 76 mg/dL (7-20) Creatinine 9.7 mg/dL (0.6-1.0) 10.5 mg/dL (0.6-1.0) Estimated GFR (Cockcroft-Gault) 4.8 4.3 BUN/Creatinine Ratio 8 (6-20) Glucose Level 95 mg/dL (70-99) 80 mg/dL (70-99) Calcium Level 9.3 mg/dL (8.5-10.1) 8.8 mg/dL (8.5-10.1) Total Bilirubin 0.4 mg/dL (0.2-1.0) Aspartate Amino Transf (AST/SGOT) 18 U/L (15-37) Alanine Aminotransferase (ALT/SGPT) 15 U/L (14-59) Alkaline Phosphatase 129 U/L (46-116) Troponin I High Sensitivity 54 ng/L (4-50) VZ-Zsy-[id number]-Type Natriuretic Peptide 95873 pg/mL (0-449) Total Protein 8.1 g/dL (6.4-8.2) Albumin 3.2 g/dL (3.4-5.0) Albumin/Globulin Ratio 0.7 (1.0-1.7) Phosphorus Level 6.5 mg/dL (2.6-4.7) Magnesium Level 2.4 mg/dL (1.8-2.4) Laboratory Tests Test 09/02/21 11:46 09/02/21 11:59 09/02/21 12:07 09/03/21 06:50 Coronavirus (COVID-19)(PCR) Not detected (NOT DETECTD) Influenza Type A Antigen Negative (NEGATIVE) Influenza Type B Antigen Negative (NEGATIVE) SARS-CoV-2 Antigen (Rapid) Negative (NEGATIVE) Activated Partial Thromboplast Time 36 SEC (24-38) White Blood Count 7.8 x10^3/uL (4.0-11.0) 5.7 x10^3/uL (4.0-11.0) Red Blood Count 2.95 x10^6/uL (3.50-5.40) 2.84 x10^6/uL (3.50-5.40) Hemoglobin 9.2 g/dL (12.0-15.5) 9.0 g/dL (12.0-15.5) Hematocrit 28.6 % (36.0-47.0) 27.7 % (36.0-47.0) Mean Corpuscular Volume 97 fL (79-100) 98 fL (79-100) Mean Corpuscular Hemoglobin 31 pg (25-35) 32 pg (25-35) Mean Corpuscular Hemoglobin Concent 32 g/dL (31-37) 33 g/dL (31-37) Red Cell Distribution Width 16.9 % (11.5-14.5) 16.8 % (11.5-14.5) Platelet Count 209 x10^3/uL (140-400) 173 x10^3/uL (140-400) Neutrophils (%) (Auto) 78 % (31-73) 71 % (31-73) Lymphocytes (%) (Auto) 8 % (24-48) 11 % (24-48) Monocytes (%) (Auto) 10 % (0-9) 13 % (0-9) Eosinophils (%) (Auto) 3 % (0-3) 5 % (0-3) Basophils (%) (Auto) 0 % (0-3) 1 % (0-3) Neutrophils # (Auto) 6.1 x10^3/uL (1.8-7.7) 4.1 x10^3/uL (1.8-7.7) Lymphocytes # (Auto) 0.6 x10^3/uL (1.0-4.8) 0.7 x10^3/uL (1.0-4.8) Monocytes # (Auto) 0.8 x10^3/uL (0.0-1.1) 0.7 x10^3/uL (0.0-1.1) Eosinophils # (Auto) 0.2 x10^3/uL (0.0-0.7) 0.3 x10^3/uL (0.0-0.7) Basophils # (Auto) 0.0 x10^3/uL (0.0-0.2) 0.0 x10^3/uL (0.0-0.2) Prothrombin Time 27.2 SEC (11.7-14.0) 32.9 SEC (11.7-14.0) Prothromb Time International Ratio 2.6 (0.8-1.1) 3.3 (0.8-1.1) Sodium Level 141 mmol/L (136-145) 139 mmol/L (136-145) Potassium Level 4.4 mmol/L (3.5-5.1) 4.4 mmol/L (3.5-5.1) Chloride Level 100 mmol/L (98-107) 99 mmol/L (98-107) Carbon Dioxide Level 30 mmol/L (21-32) 30 mmol/L (21-32) Anion Gap 11 (6-14) 10 (6-14) Blood Urea Nitrogen 74 mg/dL (7-20) 76 mg/dL (7-20) Creatinine 9.7 mg/dL (0.6-1.0) 10.5 mg/dL (0.6-1.0) Estimated GFR (Cockcroft-Gault) 4.8 4.3 BUN/Creatinine Ratio 8 (6-20) Glucose Level 95 mg/dL (70-99) 80 mg/dL (70-99) Calcium Level 9.3 mg/dL (8.5-10.1) 8.8 mg/dL (8.5-10.1) Total Bilirubin 0.4 mg/dL (0.2-1.0) Aspartate Amino Transf (AST/SGOT) 18 U/L (15-37) Alanine Aminotransferase (ALT/SGPT) 15 U/L (14-59) Alkaline Phosphatase 129 U/L (46-116) Troponin I High Sensitivity 54 ng/L (4-50) UJ-Isl-K-Type Natriuretic Peptide 04819 pg/mL (0-449) Total Protein 8.1 g/dL (6.4-8.2) Albumin 3.2 g/dL (3.4-5.0) Albumin/Globulin Ratio 0.7 (1.0-1.7) Phosphorus Level 6.5 mg/dL (2.6-4.7) Magnesium Level 2.4 mg/dL (1.8-2.4) Review All relevant outside records, renal labs, imaging studies, telemetry/EKG's were reviewed. JARAD SHAH MD Sep 03, 2021 11:13
--- NOTE | 2021-09-03 12:58 | NUR ---
Pharmacy Warfarin Dosing Note S: Pharmacy consulted to assist with anticoagulation therapy O: OSORIO PATEL is a 75 year old F with Atrial Fibrillation LABS: Last INR: 2.6 Last HGB: 9.2 Last HCT: 28.6 Last PLT: 209 Last dose of 2.5 mg given on 09/02/21 at 1706 Vitamin K given: N Ongoing Drug Interactions: A:INR of 3.3 is above desired range. Target range for this patient is: 2 -3 P: Warfarin dose: Hold Today at 1600 Bridge Therapy: None Next INR due tomorrow Pharmacy anticoagulation service will continue to follow. Monik Amanda RPH, 09/03/21 [id number]
[2021-09-03 15:00] VITALS: BP 157/46
--- NOTE | 2021-09-03 17:12 | NUR ---
WOUND CARE: Patient seen per wound care consult. There are no open wounds at this time. patient stated she had a recent fall where she hit her hip on the wheel chair and had a couple abrasions. these areas are now healed. the left ischium is also sore but is not open at this time. Brief removed as it was rubbing this area and causing irritation. Patient encouraged to turn often. No wounds noted. Patient repositioned. Bed lowered and call light in reach. Spoke with RN and wound care will sign off at this time. Please re consult regarding any changes per wound care.
[2021-09-03 19:00] VITALS: BP 120/40
[2021-09-03] MEDS: ATORVASTATIN CALCIUM 20 MG TABLET PO SCH (20:41)
[2021-09-03 23:09] VITALS: BP 106/35
[2021-09-04 03:13] VITALS: BP 119/48
[2021-09-04 07:00] VITALS: BP 128/35
[2021-09-04] MEDS: CALCIUM ACETATE 667 MG CAPSULE PO SCH ×2 (08:02→12:11)
[2021-09-04 08:16] LABS: BASO % 1 % (0-3); EOS # 0.1 x10^3/uL (0.0-0.7); EOS % 2 % (0-3); HEMATOCRIT 28.5 % (36.0-47.0); HEMOGLOBIN 9.3 g/dL (12.0-15.5); LYMPH # 0.7 x10^3/uL (1.0-4.8); LYMPH % 11 % (24-48); MEAN CORPUSCULAR HEMOGLOBIN 32 pg (25-35); MEAN CORPUSCULAR HGB CONC 33 g/dL (31-37); MEAN CORPUSCULAR VOLUME 97 fL (79-100); MONO # 0.9 x10^3/uL (0.0-1.1); MONO % 14 % (0-9); NEUT # 4.6 x10^3/uL (1.8-7.7); NEUT % 72 % (31-73); PLATELET COUNT 177 x10^3/uL (140-400); RED BLOOD COUNT 2.93 x10^6/uL (3.50-5.40); RED CELL DISTRIBUTION WIDTH 16.7 % (11.5-14.5); WHITE BLOOD COUNT 6.4 x10^3/uL (4.0-11.0)
[2021-09-04 08:23] LABS: PROTHROMBIN TIME PATIENT 26.3 SEC (11.7-14.0)
[2021-09-04 08:32] LABS: CALCIUM 9.1 mg/dL (8.5-10.1); CREATININE 6.7 mg/dL (0.6-1.0); GFR 7.3; MAGNESIUM 2.1 mg/dL (1.8-2.4); POTASSIUM 4.5 mmol/L (3.5-5.1)
--- NOTE | 2021-09-04 09:29 | PDOC ---
DATE OF SERVICE DATE: 09/04/21 TIME: 09:27 SUBJECTIVE ROS stable , states feeling fair. Wants to go to Rehab OBJECTIVE Vital Signs Vital Signs Date Time Temp Pulse Resp B/P (MAP) Pulse Ox O2 Delivery O2 Flow Rate FiO2 09/04/21 07:00 99.0 64 18 128/35 (66) 96 99.0 09/04/21 03:13 Room Air I & 0 Intake and Output 09/04/21 07:00 Intake Total 480 ml Balance 480 ml Intake Oral 480 ml PHYSICAL EXAM Physical Exam eneral: Alert, Oriented X3, Cooperative, No acute distress HEENT: Atraumatic, PERRLA, EOMI, Mucous membr. moist/pink Neck Supple Lungs: CTA , Non labored Heart: no murmurs, irregularly irregular Extremities: No clubbing, No cyanosis, trace edema Skin: No rashes Neuro: Cranial nerves 3-12 NL, moving all extremities Psych/Mental Status: Mood NL, cooperative No Hayes, No CVA or SP tenderness DIAGNOSIS/ASSESSMENT Assessment & Plan ESRD- On HD MWF, .No indication for dialysis today . Resume as OP tomorrow if dced. Defer to Primary Generalized Weakness- primary managing Failure to thrive in an adult Anemia- Monitor, TRACEY Chronic combined CHF - EF 40-45%. Global hypokinesis. mild tricuspid regurgitation. PA pressure approximately 58 mm HTN- BP stable COVID-positive @ Outside Rehab facility PVD Atrial fibrillation History CVA COMMENT/RELEVANT DATA Meds Current Medications Medications (Trade) Dose Ordered Sig/Radha Start Time Stop Time Status Last Admin Dose Admin Acetaminophen (Tylenol) 650 mg PRN Q4HRS PRN 09/02/21 15:30 Albumin Human 200 ml @ 200 mls/hr 1X PRN PRN 09/03/21 07:45 09/03/21 13:44 DC Atorvastatin Calcium (Lipitor) 20 mg QHS 09/02/21 21:00 09/03/21 20:41 20 MG Calcium Acetate (Phoslo) 1,334 mg TIDWMEALS 09/03/21 17:00 09/04/21 08:02 1,334 MG Dextrose (Dextrose 50%-Water Syringe) 12.5 gm PRN Q15MIN PRN 09/02/21 15:30 Diphenhydramine HCl (Benadryl) 25 mg PRN QHS PRN 09/02/21 15:30 Docusate Sodium (Colace) 100 mg PRN DAILY PRN 09/02/21 15:30 Heparin Sodium (Porcine) (Heparin Sodium) 5,000 unit Q12HR 09/02/21 21:00 09/02/21 15:28 DC Info (PHARMACY MONITORING -- do not chart) 1 each PRN DAILY PRN 09/03/21 07:45 Lorazepam (Ativan Inj) 0.25 mg PRN Q4HRS PRN 09/02/21 15:30 Lorazepam (Ativan) 0.5 mg PRN Q6HRS PRN 09/02/21 15:30 Midodrine (Proamatine) 10 mg DAILY 09/03/21 11:30 09/03/21 10:59 10 MG Ondansetron HCl (Zofran) 4 mg PRN Q6HRS PRN 09/02/21 15:30 Prochlorperazine Edisylate (Compazine) 10 mg PRN Q6HRS PRN 09/02/21 15:30 Sennosides (Senna) 17.2 mg PRN BID PRN 09/02/21 15:30 Sodium Chloride 1,000 ml @ 400 mls/hr Q2H30M PRN 09/03/21 07:45 09/03/21 19:44 DC Warfarin Sodium (Coumadin - No Dose Today) 1 each 1X WARF ONCE 09/03/21 16:00 09/03/21 16:01 DC 09/03/21 15:17 1 EACH Warfarin Sodium (Coumadin Per Pharmacy) 1 each PRN DAILY PRN 09/02/21 15:30 09/03/21 12:59 1 EACH Warfarin Sodium (Coumadin) 2.5 mg DAILY16 09/02/21 16:00 09/03/21 12:57 DC 09/02/21 17:06 2.5 MG Zolpidem Tartrate (Ambien) 2.5 mg PRN QHS PRN 09/02/21 15:30 Lab Laboratory Tests Test 09/04/21 06:30 White Blood Count 6.4 x10^3/uL (4.0-11.0) Red Blood Count 2.93 x10^6/uL (3.50-5.40) Hemoglobin 9.3 g/dL (12.0-15.5) Hematocrit 28.5 % (36.0-47.0) Mean Corpuscular Volume 97 fL (79-100) Mean Corpuscular Hemoglobin 32 pg (25-35) Mean Corpuscular Hemoglobin Concent 33 g/dL (31-37) Red Cell Distribution Width 16.7 % (11.5-14.5) Platelet Count 177 x10^3/uL (140-400) Neutrophils (%) (Auto) 72 % (31-73) Lymphocytes (%) (Auto) 11 % (24-48) Monocytes (%) (Auto) 14 % (0-9) Eosinophils (%) (Auto) 2 % (0-3) Basophils (%) (Auto) 1 % (0-3) Neutrophils # (Auto) 4.6 x10^3/uL (1.8-7.7) Lymphocytes # (Auto) 0.7 x10^3/uL (1.0-4.8) Monocytes # (Auto) 0.9 x10^3/uL (0.0-1.1) Eosinophils # (Auto) 0.1 x10^3/uL (0.0-0.7) Basophils # (Auto) 0.0 x10^3/uL (0.0-0.2) Prothrombin Time 26.3 SEC (11.7-14.0) Prothromb Time International Ratio 2.5 (0.8-1.1) Sodium Level 140 mmol/L (136-145) Potassium Level 4.5 mmol/L (3.5-5.1) Chloride Level 100 mmol/L (98-107) Carbon Dioxide Level 30 mmol/L (21-32) Anion Gap 10 (6-14) Blood Urea Nitrogen 58 mg/dL (7-20) Creatinine 6.7 mg/dL (0.6-1.0) Estimated GFR (Cockcroft-Gault) 7.3 Glucose Level 86 mg/dL (70-99) Calcium Level 9.1 mg/dL (8.5-10.1) Magnesium Level 2.1 mg/dL (1.8-2.4) Results All relevant outside records, renal labs, imaging studies, telemetry/EKG's were reviewed. Justicifation of Admission Dx: Justifications for Admission: Justification of Admission Dx: N/A ALYSSA,JARAD MD Sep 04, 2021 09:29
--- NOTE | 2021-09-04 09:51 | NUR ---
SS following up with discharge planning. SS reviewed pt chart and discussed with pt RN. Pt is from home with family and is currently on room air. COVID19 negative. Pt has outpatient hemodialysis at [facility], ; fax [phone]. Pt has had [facility], [phone]; fax [phone]. PT/OT recommended nursing home unit. SS met with pt to discuss discharge planning and rehabilitation. Pt reported that she was recently at [facility], ; fax [phone], and would like to return. Referral phoned and faxed to [facility]. SS left voicemail for admissions. SS will continue to follow for discharge planning. Addendum: 09/04/21 at 1223 by CHANEL ESQUIVEL SS Pt accepted at [facility] Acute Rehabilitation. Discharge orders received and sent to [facility]. Pt will discharge today and go to [facility] at 1330 vis stretcher. Pt, pt's RN, and pt's son notified.
--- NOTE | 2021-09-04 10:13 | PDOC ---
[employer] PROGRESS NOTE Date of Service DOS: DATE: 09/04/21 TIME: 10:12 Chief Complaint Chief Complaint Failure to thrive in an adult Acute volume overload Acute electrolyte derangement consistent with ESRD COVID-positive infection Anemia secondary to ESRD History of atrial fibrillation on warfarin Severe DJD of the right hip History of CHF, systolic with LVEF of 40 to 45% on echo 12/17/2020 History of ESRD on HD MWF History of hypertension Morbid obesity History of Present Illness History of Present Illness 09/04/2021 Patient seen and examined exam discussed with RN Discussed with case management Chart reviewed The patient would like to go to [facility] rehab Case management has sent the referral we are awaiting to see if she might be accepted 09/03/2021 Patient seen and examined Discussed with RN Chart reviewed Her last dialysis was Wednesday 6 days ago according to her Vitals/I&O Vitals/I&O: Vital Signs Date Time Temp Pulse Resp B/P (MAP) Pulse Ox O2 Delivery O2 Flow Rate FiO2 09/04/21 07:00 99.0 64 18 128/35 (66) 96 99.0 09/04/21 03:13 Room Air I & O 09/03/21 09/03/21 09/04/21 15:00 23:00 07:00 Intake Total 120 ml 310 ml 50 ml Balance 120 ml 310 ml 50 ml Physical Exam General: Alert Heart: Regular rate Lungs: Clear Abdomen: Soft Extremities: No clubbing Skin: No rashes Labs Labs: Laboratory Tests Test 09/04/21 06:30 White Blood Count 6.4 x10^3/uL (4.0-11.0) Red Blood Count 2.93 x10^6/uL (3.50-5.40) Hemoglobin 9.3 g/dL (12.0-15.5) Hematocrit 28.5 % (36.0-47.0) Mean Corpuscular Volume 97 fL (79-100) Mean Corpuscular Hemoglobin 32 pg (25-35) Mean Corpuscular Hemoglobin Concent 33 g/dL (31-37) Red Cell Distribution Width 16.7 % (11.5-14.5) Platelet Count 177 x10^3/uL (140-400) Neutrophils (%) (Auto) 72 % (31-73) Lymphocytes (%) (Auto) 11 % (24-48) Monocytes (%) (Auto) 14 % (0-9) Eosinophils (%) (Auto) 2 % (0-3) Basophils (%) (Auto) 1 % (0-3) Neutrophils # (Auto) 4.6 x10^3/uL (1.8-7.7) Lymphocytes # (Auto) 0.7 x10^3/uL (1.0-4.8) Monocytes # (Auto) 0.9 x10^3/uL (0.0-1.1) Eosinophils # (Auto) 0.1 x10^3/uL (0.0-0.7) Basophils # (Auto) 0.0 x10^3/uL (0.0-0.2) Prothrombin Time 26.3 SEC (11.7-14.0) Prothromb Time International Ratio 2.5 (0.8-1.1) Sodium Level 140 mmol/L (136-145) Potassium Level 4.5 mmol/L (3.5-5.1) Chloride Level 100 mmol/L (98-107) Carbon Dioxide Level 30 mmol/L (21-32) Anion Gap 10 (6-14) Blood Urea Nitrogen 58 mg/dL (7-20) Creatinine 6.7 mg/dL (0.6-1.0) Estimated GFR (Cockcroft-Gault) 7.3 Glucose Level 86 mg/dL (70-99) Calcium Level 9.1 mg/dL (8.5-10.1) Magnesium Level 2.1 mg/dL (1.8-2.4) Assessment and Plan Assessmemt and Plan Problems Medical Problems: (1) End stage renal disease on dialysis Status: Acute (2) Failure to thrive in adult Status: Acute (3) Fluid overload Status: Acute (4) Generalized weakness Status: Acute Failure to thrive in an adult Acute volume overload Acute electrolyte derangement consistent with ESRD COVID-positive infection Anemia secondary to ESRD History of atrial fibrillation on warfarin Severe DJD of the right hip History of CHF, systolic with LVEF of 40 to 45% on echo 12/17/2020 History of ESRD on HD MWF History of hypertension Morbid obesity Plan Dialysis per nephrology Home meds Trend labs DVT prophylaxis PT OT Protonix for GI prophylaxis Full code Suspect she may need placement Discussed with RN Plan We have a referral to [facility] rehab for rehabilitation For now continue dialysis per nephrology Trend labs Home meds DVT prophylaxis Full code PT OT Comment Review of Relevant I have reviewed the following items maya (where applicable) has been applied. Medications: Current Medications Medications (Trade) Dose Ordered Sig/Radha Route PRN Reason Start Time Stop Time Status Last Admin Dose Admin Midodrine (Proamatine) 10 mg DAILY PO 09/03/21 11:30 09/03/21 10:59 Warfarin Sodium (Coumadin - No Dose Today) 1 each 1X WARF ONCE MC 09/03/21 16:00 09/03/21 16:01 DC 09/03/21 15:17 Calcium Acetate (Phoslo) 1,334 mg TIDWMEALS PO 09/03/21 17:00 09/04/21 08:02 Justifications for Admission Other Justification Failure to thrive in an adult KATYA HARDY K III DO Sep 04, 2021 10:13
--- NOTE | 2021-09-04 10:16 | SNU/HH DC ---
DISCHARGE ORDERS DISCHARGE INFORMATION: FINAL DIAGNOSIS Problems Medical Problems: (1) End stage renal disease on dialysis Status: Acute (2) Failure to thrive in adult Status: Acute (3) Fluid overload Status: Acute (4) Generalized weakness Status: Acute CONDITION ON DISCHARGE: Stable CODE STATUS: Code Status: Full CUSTODIAL: SNF STAY <30 DAYS: No HOSPICE: HOSPICE: No HOSPICE EVAL & TREAT: No LTAC: ADMIT TO LTAC: No POST DISCHARGE ORDERS: ACTIVITY ORDERS: Activity as tolerated WEIGHT BEARING STATUS: As tolerated DIET AFTER DISCHARGE: Renal WOUND/INCISION CARE: No wound care needed OTHER ORDERS: Discharge to [facility] rehab in OP CHECKS AFTER DISCHARGE: CHECKS AFTER DISCHARGE: Check blood press - daily, Weigh Yourself Daily TREATMENT/EQUIPMENT ORDERS: ADAPTIVE EQUIPMENT NEEDED: None RESPIRATORY EQUIPMENT NEEDED: Oxygen Physical Therapy For: Evalulation/Treatment Occupational Therapy For: Evaluation/Treatment DISCHARGE MEDICATIONS: Home Meds Active Scripts Atorvastatin Calcium (ATORVASTATIN CALCIUM) 20 Mg Tablet, 20 MG PO QHS for . for 30 Days, #30 TAB Prov:CASTJJ,NIAL K III DO 12/24/20 [Warfarin Per Pharmacy] 1 EACH EACH No Conflict Check, 1 EACH PRN DAILY PRN for SEE COMMENTS for 30 Days, #30 Prov:CASTLE,NIAL K III DO 12/24/20 Reported Medications Midodrine Hcl (MIDODRINE HCL) 10 Mg Tablet, 10 MG PO DAILY for HYPOTENSION, TAB 08/18/21 Calcium Acetate (CALCIUM ACETATE) 667 Mg Tablet, 667 MG PO TIDWMEALS for DIALYSIS PATIENTS, CAP 04/11/18 Magnesium Oxide (MAG-OXIDE) 400 Mg Tablet, 1 TAB PO DAILY, #90 TAB 3 Refills 04/21/16 Furosemide (LASIX) 40 Mg Tablet, 1 TAB PO DAILY, #90 TAB 1 Refill 04/21/16 CASTLE,NIAL K III DO Sep 04, 2021 10:16
[2021-09-04 11:00] VITALS: BP 117/78
[2021-09-04 12:10] VITALS: BP 117/78
[2021-09-04] MEDS: MIDODRINE 5 MG TABLET PO SCH (12:10)
[2021-09-04] MEDS ORDERED: WARF1TAB69 PO (13:12)
--- NOTE | 2021-09-04 14:00 | NUR ---
Discharge Note: Patient was discharged/transferred to [facility]. Patients IV was discontinued without any complications per [employer]. Patient and family in agreeable with discharge plans. Patient was transported over to facility via stretcher, with all personal belongings. Son was going to take over belongings from home over to facility. Patients discharge paperwork was sent over to facility with patient and transport. Report was called to DAKOTA Barber at [facility].
--- NOTE | 2021-09-04 14:51 | NUR ---
Pharmacy Warfarin Dosing Note S: Pharmacy consulted to assist with anticoagulation therapy O: OSORIO PATEL is a 75 year old F with Atrial Fibrillation LABS: Last INR: 2.5 Last HGB: 9.3 Last HCT: 28.5 Last PLT: 177 Last dose of 2.5 mg given on 09/02/21 at 1706 Vitamin K given: N A:INR of 2.5 is within desired range. Target range for this patient is: 2 - 3 P: Warfarin dose: 2 mg Today at 1600 Bridge Therapy: None Next INR due 09/05/21 Pharmacy anticoagulation service will continue to follow. ROSA ASHTON [facility], 09/04/21 [id number]
[2021-09-04] MEDS ORDERED: WARFARIN 2 MG TABLET. PO ONE (16:00)
== END 2021-09-04 14:00 | DRG 640 ==
LOC: ER 10:50 → 5 NORTH 13:15
PROVIDERS: ADMIT Internal Medicine; ATTEND Internal Medicine
PROC: 5A1D70Z Performance of Urinary Filtration, Intermittent, Less than 6 Hours Per Day (ICD-10-PCS; principal; 2021-09-03)
DX: E87.70 Fluid overload, unspecified (principal); N18.6 End stage renal disease; I13.2 Hypertensive heart and chronic kidney disease with heart failure and with stage 5 chronic kidney disease, or end stage renal disease; I50.22 Chronic systolic (congestive) heart failure; M62.81 Muscle weakness (generalized); Z79.01 Long term (current) use of anticoagulants; R62.7 Adult failure to thrive; Z99.2 Dependence on renal dialysis; D63.1 Anemia in chronic kidney disease; E66.01 Morbid (severe) obesity due to excess calories; I48.91 Unspecified atrial fibrillation; M16.11 Unilateral primary osteoarthritis, right hip; M19.011 Primary osteoarthritis, right shoulder; M19.012 Primary osteoarthritis, left shoulder; Z78.9 Other specified health status; Z82.49 Family history of ischemic heart disease and other diseases of the circulatory system; Z86.73 Personal history of transient ischemic attack (TIA), and cerebral infarction without residual deficits; Z90.49 Acquired absence of other specified parts of digestive tract; Z90.710 Acquired absence of both cervix and uterus; Z86.718 Personal history of other venous thrombosis and embolism; Z20.822 Contact with and (suspected) exposure to COVID-19
CPT/HCPCS: 36415; 71045; 73502; 80048; 80053; 83735; 83880; 84100; 84484; 85025; 85610; 85730; 87428; 93005; U0003; 97110-GP; 97116-GP; 97530-GO; 97530-GP; 97535-GO; 99285-25; G0378